=== PATIENT | female | born 1970 | race Caucasian/White ===

== ENCOUNTER 2018-07-25 11:00 | Outpatient (RCR) | payer MEDICARE, MEDICAID, SELFPAY ==
--- NOTE | 2018-06-27 11:34 | PTTR_ITS ---
DATE: 06/27/18 SUBJECTIVE: Socorro states that her back and shoulders have been very sore today. She had trouble sleeping last night due to pain. Her caregiver provides a message from Socorro's mother, who reported that Socorro had a great deal of difficulty getting out of bed this morning, requiring assistance from her mother and complaining of back pain. Her caregiver reports that she completed her 90 minute exercise program here today without any pain complaints or difficulty. Compliant with HEP: x Yes No OBJECTIVE: Manual therapy: ([id number]): Patient is able to transfer sit<->supine independently, without modification or c/o pain. She references the right buttock as the location of her pain; she received manual stretching to the right piriformis with good tolerance. She then received manual mobilization of the cervical spine and bilat shoulders. Began with PROM to bilat shoulders, where she initially experiences impingement symptoms at 165 degrees flexion bilat. Performed CFM to bilat GTs, as well as grade II inferior and AP GH joint mobs bilat. Patient received gentle manual cervical traction and suboccipital release, as well as DTM through the upper traps bilat. Post-rx, she has full PROM bilat shoulders without pain. She received gentle lower trunk rotation, and was instructed in home completion prior to getting out of bed in the am. Direct treatment time: 30 minutes Total treatment time: 30 minutes
--- NOTE | 2018-07-09 16:00 | PTTR_ITS ---
DATE: 07/09/18 SUBJECTIVE: Socorro states her neck and shoulders continue to be very painful. She has tried her stretches in the morning, her mother feels that these have been helpful. Manual therapy: ([id number]). Began with gentle manual cervical traction and suboccipital release. The patient received manual stretching to the scalene and upper traps bilaterally. This was followed by PROM to bilateral shoulders and cross friction to the greater tuberosity bilaterally. She received grade 2 inferior and AP GH joint mobilizations bilaterally with good tolerance as well as trigger point release to the upper traps bilaterally. Post mobilization, the patient reports good symptomatic relief. Direct treatment time: 30 mins Total treatment time: 30 mins SS/dl
--- NOTE | 2018-07-25 11:47 | PN_ITS ---
DATE: 07/25/18 REFERRING: Lorenza Hirsch NP REFERRING PROVIDER DIAGNOSIS:: chronic back pain and ataxia REPORTING PERIOD (for progress note and discharge note only): 12/20/17 - SUBJECTIVE: Socorro states that she continues to have pain every day. She reports that she cannot sleep at night due to her back and shoulders hurting. Her caregiver confirms that Socorro has been continuing to report bilateral shoulder, neck and mid back pain. She states that they have continued with Socorro's exercise program , working 2x/week here in the clinic on land-based strengthening, and 2x/week in the pool. OBJECTIVE: Posture: The patient is able to statically stand without UE support, although with maximally widened base of support. She utilizes articulating AFOs on bilateral LEs. She does typically use a rollator walker, which she does not have with her during our visit today. Gait: (indicate right or left deficits) Ataxic gait pattern without assistive device. She maintains a wide base of support, and has flat foot throughout all phases of gait. She demonstrates a shortened stride length today with internal rotation of the right hip and circumducting gait pattern, right greater than left. Palpation: Significant tenderness to palpation throughout the thoracic paraspinals, bilat upper traps. Treatment: Today's session consisted of mobilization of the spine and surrounding musculature. She received DTM throughout the thoracic paraspinals, and grade III PA mobs to the upper thoracic segments. She received DTM and TrP release to the upper traps bilat. ASSESSMENT: Socorro has been seen here in the clinic 2x/month for management of her chronic pain and mobility deficits related to her severe scoliosis. She continues to struggle with daily pain from bilat shoulder impingement, as well as mid back and neck pain related to her scoliosis. She performs an extensive exercise program with assistance from her caregivers, and requires continued mobilization to manage her pain and prevent further decline. G-Codes (add modifier after appropriate code): * [x] Mobility - walking and moving around : [id number]] based on clinic judgement Projected goal: [id number]] ST) return to baseline level of pain and function (met) 2) train new caregiver in completion of independent strengthening program (met) LT) maintain low pain levels and normalize mobility to allow patient to resume her normal volunteer activities and day to day exercises (progressing toward) KX modifier to be utilized as justified by above documentation for necessity of continued Physical Therapy intervention to attend to functional deficits which have not been fully remediated as they approach their Medicare cap. PLAN: Patient to continue treatment, 2 x per month, for 6 months, adjusting frequency of visits per patient symptoms and response to treatment. Treatment to include: * x Manual therapy - [id number]- (indicate any further detail here): Will continue with manual mobilization, including joint mobs to bilat shoulders, cervical spine and upper thoracic spine. Will also continue with DTM to address soft tissue dysfunction. * x Therapeutic exercise - [id number] continue to modify and progress patient's exercise program as she tolerates.
== END 2018-07-25 23:59 | disposition home or self-care (01) ==
LOC: PT 11:00
PROVIDERS: Referring Provider Nurse Practitioner Gerontology; Visit Provider Nurse Practitioner Gerontology
DX: M54.5 Low back pain (principal); R27.0 Ataxia, unspecified
CPT/HCPCS: 97140; G8978

== ENCOUNTER 2018-09-18 12:06 | Outpatient (CLI) | payer MEDICARE, MEDICAID, SELFPAY ==
--- NOTE | 2018-09-18 15:03 | DI.RAD_ITS ---
SYMPTOMS/DIAGNOSIS: CONSTIPATION, K59.00 ABDOMEN: Single view of the abdomen was obtained. There is marked biconvex thoracolumbar scoliosis. The bowel gas pattern is within normal limits. No gross free intraperitoneal air identified on this supine view. The requisition raises the possibility of constipation and there is no evidence of constipation. CONCLUSION: Negative examination of the abdomen.
== END 2018-09-18 12:26 ==
DX: K59.00 Constipation, unspecified (principal)
CPT/HCPCS: 74018

== ENCOUNTER → 2018-10-28 09:02 | Outpatient (BNVA) | payer MEDICARE, MEDICAID, SELFPAY | PROVIDERS: Visit Provider Orthopaedic Surgery | DX: M17.0 Bilateral primary osteoarthritis of knee (principal); M65.811 Other synovitis and tenosynovitis, right shoulder | CPT/HCPCS: 20610; 99211; 99213; J1040; J7325 ==

== ENCOUNTER 2019-01-14 15:30 | Outpatient (REF) | payer MEDICARE, MEDICAID, SELFPAY | END 2019-01-14 15:50 | LOC: LBN 15:30 | DX: R69 Illness, unspecified (principal) | CPT/HCPCS: 87329; 87505; 83630; 87177; 87230 ==

== ENCOUNTER 2019-01-16 16:39 | Outpatient (REF) | payer MEDICARE, MEDICAID, SELFPAY ==
[2019-01-19 13:15] LABS: Campylobacter PCR SEE COMMENTS; Salmonella PCR SEE COMMENTS; Shiga Toxin PCR SEE COMMENTS; Shigella/Enteroinvasive Ecoli SEE COMMENTS
[2019-01-29 03:23] LABS: Chymotrypsin, Stool 2.3 U/g (2.3-51.4)
== END 2019-01-16 16:59 ==
LOC: LBN 16:39
DX: K52.9 Noninfective gastroenteritis and colitis, unspecified (principal)
CPT/HCPCS: 84311; 87329; 87505; 82272

== ENCOUNTER 2019-01-30 09:52 | Outpatient (REF) | payer MEDICARE, MEDICAID, SELFPAY | END 2019-01-30 10:12 | LOC: LBN 09:52 | DX: R19.7 Diarrhea, unspecified (principal) | CPT/HCPCS: 87324 ==

== ENCOUNTER 2019-02-23 13:24 | Outpatient (CLI) | payer MEDICARE, MEDICAID, SELFPAY ==
[2019-02-23 15:26] LABS: Anion Gap 13.1 mmol/L (3-11); BUN 14 mg/dL (7-18); CO2 24.9 mmol/L (21.0-32.0); CREATININE 0.76 mg/dL (0.55-1.02); Calcium 9.1 mg/dL (8.5-10.1); Chloride 103 mmol/L (98-107); Glucose 81 mg/dL (70-100); Potassium 3.7 mmol/L (3.5-5.1); Sodium 141 mmol/L (136-145); TSH (W/Ref FT4) 1.87 uIU/mL (0.358-3.74)
== END 2019-02-23 13:44 ==
PROVIDERS: Visit Provider Internal Medicine
DX: E03.9 Hypothyroidism, unspecified (principal); F32.9 Major depressive disorder, single episode, unspecified; F79 Unspecified intellectual disabilities; Z00.00 Encounter for general adult medical examination without abnormal findings; G47.00 Insomnia, unspecified
CPT/HCPCS: 36415; 80048; 84443

== ENCOUNTER 2019-03-03 00:50 | Outpatient (CLI) | payer MEDICARE, MEDICAID, SELFPAY ==
--- NOTE | 2019-03-03 13:10 | DI.RAD_ITS ---
SYMPTOMS/DIAGNOSIS: HEIGHT LOSS, SCREENING FOR OSTEOPOROSIS IN POSTMENOPAUSAL WOMAN, Z78.0 DEXA SCAN: Routine examination was performed. The MARJORIE was not performed on this exam due to the patient's severe scoliotic curvature of the spine. Evaluation of the left hip shows a total T score of -1.4 and a Z score of -1.0. This is consistent with osteopenia and an increased fracture risk. AP view of the lumbar spine shows a severe right convex scoliosis of the thoracolumbar spine. A portion of the L1 vertebral body does not appear to be included on the examination. IMPRESSION: Osteopenia in the left hip.
== END 2019-03-03 01:10 ==
PROVIDERS: Visit Provider Internal Medicine
DX: M85.88 Other specified disorders of bone density and structure, other site (principal); Z78.0 Asymptomatic menopausal state; R29.890 Loss of height
CPT/HCPCS: 77080

== ENCOUNTER → 2019-04-28 09:32 | Outpatient (BNVA) | payer MEDICARE, MEDICAID, SELFPAY | PROVIDERS: Visit Provider Orthopaedic Surgery | DX: M75.82 Other shoulder lesions, left shoulder (principal); M17.11 Unilateral primary osteoarthritis, right knee; M25.512 Pain in left shoulder; M25.561 Pain in right knee | CPT/HCPCS: 20610; 99211; J1040; J7325 ==

== ENCOUNTER 2019-05-15 11:51 | Emergency (ER) | payer MEDICARE, MEDICAID, SELFPAY ==
[2019-05-15] VITALS (29 sets, daily range): BP systolic 130–175; BP diastolic 90–108; PULSE 72–121; RESP 13–24; TEMP 36.8; O2SAT 94–99
--- NOTE | 2019-05-15 12:09 | DI.RAD_ITS ---
SYMPTOM/DIAGNOSIS: CHEST PAIN PA AND LATERAL CHEST: There is a severe biconvex scoliosis, greatest at the thoracolumbar junction. The heart size is normal. The lungs are clear. IMPRESSION: Severe scoliosis. No acute abnormality.
--- NOTE | 2019-05-15 12:10 | W.ED.GENAD ---
Discharge Plan Disposition Patient Disposition: HOME Condition: Stable Discharge Details Chief Complaint: Chest Pain Clinical Impression: Upper back pain Primary Care Provider: Christina Trevizo ED Provider: Hardy Martinez Home Meds and New Rx's Prescriptions: No Action calcium carbonate-vitamin D3 500mg (1,250mg) -600 unit tablet 1 tab PO DAILY Qty: 90 RF: 4 omeprazole 20 mg capsule,delayed release(DR/EC) 20 mg PO DAILY RF: 0 azithromycin 250 mg tablet See Rx Instructions PO .COMPLEX Qty: 6 RF: 0 sertraline 100 mg tablet 100 mg PO DAILY Qty: 90 RF: 4 levothyroxine 50 mcg tablet 50 mcg PO DAILY Qty: 90 RF: 4 omega-3 fatty acids 1,000 MG capsule 1 cap PO DAILY RF: 0 multivitamin 1 EACH capsule 1 cap PO DAILY RF: 0 [id number] C-Mn [Glucosamine 1500 Complex] 1 EACH capsule 1 cap PO DAILY RF: 0 Systane Liquid Gel 15 ML drops, liquid gel 1 drp Ophthalmic QID RF: 0 acetaminophen [Tylenol Extra Strength] 500 MG tablet 1,000 mg PO TID PRN RF: 0 cyclobenzaprine 5 MG tablet 5 mg PO Q8H PRN Qty: 20 RF: 0 loratadine 10 mg tablet 10 mg PO daily prn Qty: 90 RF: 3 duloxetine 60 mg capsule,delayed release(DR/EC) 60 mg PO DAILY Qty: 90 RF: 2 famotidine 20 mg tablet 20 mg PO BID Qty: 180 RF: 4 meloxicam 7.5 mg tablet 7.5 mg PO BID PRN (Reason: joint pain) Qty: 180 RF: 3 norethindrone acetate 5 mg tablet 5 mg PO DAILY Qty: 90 RF: 4 tramadol 50 mg tablet 50 mg PO HS PRN (Reason: pain) Qty: 18 RF: 0 Discharge Instructions Instructions: Back Pain (ED) Additional Instructions: If symptoms continue see your primary care provider within a week if you develop severe worsening pain, difficulty breathing or fevers return to the emergency department for reevaluation Medical Decision Making 49 yo female comes in with chief complaint of upper back pain. She has a hx of scoliosis and was at PT doing back exercises when she started to have upper back pain. She apparently said she had chest pain and so was sent here. She currently is stating her pain is in the right IV site where she had 3 needle sticks done and has mild upper back pain. She has reproducible upper back pain on exam. Her heart score is 2, will send troponin. Normal vascular exam so doubt dissection. Wells low and perc negative so doubt PE at this time pt remains stable, laughing in no distress. Xray and initial labs unremarkable, will obtain delta troponin and ecg and if negative feel she will be stable for d/c and outpatient f/u with pcp pt remains stable, second troponin unremarkable and she is laughing in n odistress. Will have her f/u with pcp and return precautions given Differential Diagnosis nstemi, back spasm, strain, Medical Records Medical records reviewed: Yes I reviewed the patient's medical records. Imaging Data Radiologic Study: Attestation: I personally reviewed and interpreted this imaging study as follows: Imaging: X-Ray My impression: no acute findings Lab Data Lab results reviewed: Yes I reviewed the patient's lab results. ECG Data Attestation: I personally reviewed and interpreted this ECG (s) as follows: Prior ECG tracings: not available for review Interpretation: sinus rhythm, rate of 89, pr 126, qtc 418 2nd ekg shows sinus rhythm, rate of 96, no acute changes compared to first ekg HPI General Mode of arrival: ambulatory. Date/Time Provider Initiated Documentation: 05/15/19 11:52. Limitations to Documentation: no limitations. Information obtained by: patient and family. History of Present Illness 49 year old F presents to the emergency department with the chief complaint of upper back pain, described as moderate, Quality is described as aching, Patient started experiencing this hour(s) (1) and it has been constant. No relieving factors improve symptom(s), Other factors that worsen symptoms (palpation) . Patient notes no other symptoms.. Patient did receive the following treatments prior to arrival, none Related Data Home Medications Medication Instructions Recorded Confirmed [id number] C-Mn 1 cap PO DAILY 02/13/13 05/15/19 [Glucosamine 1,500 Complex Cp] multivitamin 1 cap PO DAILY 02/13/13 05/15/19 omega-3 fatty acids 1 cap PO DAILY 02/13/13 05/15/19 peg 400-propylene glycol [Systane 1 drp OPHTHALMIC QID 02/13/13 05/15/19 Liquid Gel Eye Drops] acetaminophen [Tylenol Extra 1,000 mg PO TID PRN tab-cap 05/06/14 05/15/19 Strength] cyclobenzaprine 5 mg PO Q8H PRN #20 tab-cap 12/24/17 05/15/19 loratadine 10 mg tablet 10 mg PO daily prn #90 tab-cap 10/01/18 05/15/19 duloxetine 60 mg capsule,delayed 60 mg PO DAILY #90 cap 12/02/18 05/15/19 release levothyroxine 50 mcg tablet 50 mcg PO DAILY #90 tab-cap 12/23/18 05/15/19 sertraline 100 mg tablet 100 mg PO DAILY #90 tab-cap 12/23/18 05/15/19 azithromycin 250 mg tablet See Rx Instructions PO .COMPLEX #6 02/18/19 05/15/19 tab omeprazole 20 mg capsule,delayed 20 mg PO DAILY tab-cap 02/18/19 05/15/19 release calcium carbonate-vitamin D3 500 1 tab PO DAILY #90 tab 02/26/19 05/15/19 mg (1,250 mg)-600 unit tablet famotidine 20 mg tablet 20 mg PO BID #180 tab-cap 03/05/19 05/15/19 meloxicam 7.5 mg tablet 7.5 mg PO BID PRN #180 tab-cap 03/05/19 05/15/19 norethindrone acetate 5 mg tablet 5 mg PO DAILY #90 tab 03/05/19 05/15/19 tramadol 50 mg tablet 50 mg PO HS PRN #18 tab 03/17/19 05/15/19 Previous Rx's Medication Instructions Recorded cyclobenzaprine 5 mg PO Q8H PRN #20 tab-cap 12/24/17 loratadine 10 mg tablet 10 mg PO daily prn #90 tab-cap 10/01/18 duloxetine 60 mg capsule,delayed 60 mg PO DAILY #90 cap 12/02/18 release levothyroxine 50 mcg tablet 50 mcg PO DAILY #90 tab-cap 12/23/18 sertraline 100 mg tablet 100 mg PO DAILY #90 tab-cap 12/23/18 azithromycin 250 mg tablet See Rx Instructions PO .COMPLEX #6 02/18/19 tab calcium carbonate-vitamin D3 500 1 tab PO DAILY #90 tab 02/26/19 mg (1,250 mg)-600 unit tablet famotidine 20 mg tablet 20 mg PO BID #180 tab-cap 03/05/19 meloxicam 7.5 mg tablet 7.5 mg PO BID PRN #180 tab-cap 03/05/19 norethindrone acetate 5 mg tablet 5 mg PO DAILY #90 tab 03/05/19 tramadol 50 mg tablet 50 mg PO HS PRN #18 tab 03/17/19 Allergies Allergy/AdvReac Type Severity Reaction Status Date / Time No Known Allergies Allergy Verified 05/15/19 12:04 General Stated Complaint: Chest Pain JANNET: 2 Review of Systems Review of Systems All systems reviewed & are unremarkable except as noted in HPI and below Constitutional Denies chills, Denies fever(s) and Denies weakness Cardiovascular Denies dyspnea Respiratory Denies cough and Denies dyspnea Gastrointestinal Denies abdominal pain, Denies nausea and Denies vomiting Musculoskeletal Denies joint swelling Integumentary/Breasts Denies rash Neurologic Denies weakness Endocrine Denies cold intolerance PFSH Social History Smoking/Tobacco Use Status: Never Second Hand Exposure: Yes Alcohol Intake: never Drug use: Never Substance use type: does not use Caregiver/Support person: Yes Household members: other Details: Mother Housing: apartment Communication Needs: Corrective Lenses and Cannot Read Pets and animals: No Sexually active: No Current gender identity: decline to answer What is your relationship status?: never How often do you talk on the phone with friends or family?: three or more times per week How often do you get together with friends or relatives?: three or more times per week How often do you attend zoroastrian or sabianist services?: 4 or more times per year Do you belong to any clubs or organized social groups?: yes Panel score (0-1 are the most socially isolated patients): 3 What type of physical activity do you participate in: other Details: PT/Pool and treadmill @ [employer] Duration: 45-60 minutes/day Frequency: 3-4 times per week Lizzy/Evangelical: Caodaism Special lizzy needs: No Exam Const General: no acute distress Orientation: alert HENMT Head: normal to inspection Ears: external ears normal General nose exam: external nose normal Mouth: moist mucous membranes Eyes General: appearance normal, both eyes and all related structures Neck Neck: normal visual inspection Resp Effort & Inspection: normal respiratory effort and able to speak in complete sentences Cardio Rate: regular rate Back/Spine/Pelvis Back: no CVA tenderness Skin General skin exam: no rashes or lesions noted Neuro General: alert Extrem General: normal to inspection Psych Mental Status: mental status grossly normal Course Vital Signs Temperature 36.8 C 05/15/19 11:58 Pulse 86 05/15/19 11:58 Respiratory Rate 05/15/19 11:58 Blood Pressure 175/106 H 05/15/19 11:58 Pulse Oximetry 98 05/15/19 11:58 Temperature 36.8 C 05/15/19 11:58 Temperature Source Temporal Artery Scan 05/15/19 11:58 Pulse 86 05/15/19 11:58 Respiratory Rate 05/15/19 11:58 Respiratory Effort Non-Labored 05/15/19 12:02 Blood Pressure 175/106 H 05/15/19 11:58 Blood Pressure Position Supine 05/15/19 11:58 Pulse Oximetry 98 05/15/19 11:58 Oxygen Delivery Method Room Air 05/15/19 11:58 Oxygen Flow Rate 0 05/15/19 11:58 Pain Level 10 05/15/19 11:58
--- NOTE | 2019-05-15 12:14 | ED.GENADUL_ITS ---
Discharge Plan Disposition Patient Disposition: HOME Condition: Stable Discharge Details Chief Complaint: Chest Pain Clinical Impression: Upper back pain Primary Care Provider: Christina Trevizo ED Provider: Hardy Martinez Home Meds and New Rx's Prescriptions: No Action calcium carbonate-vitamin D3 500mg (1,250mg) -600 unit tablet 1 tab PO DAILY Qty: 90 RF: 4 omeprazole 20 mg capsule,delayed release(DR/EC) 20 mg PO DAILY RF: 0 azithromycin 250 mg tablet See Rx Instructions PO .COMPLEX Qty: 6 RF: 0 sertraline 100 mg tablet 100 mg PO DAILY Qty: 90 RF: 4 levothyroxine 50 mcg tablet 50 mcg PO DAILY Qty: 90 RF: 4 omega-3 fatty acids 1,000 MG capsule 1 cap PO DAILY RF: 0 multivitamin 1 EACH capsule 1 cap PO DAILY RF: 0 [id number] C-Mn [Glucosamine 1500 Complex] 1 EACH capsule 1 cap PO DAILY RF: 0 Systane Liquid Gel 15 ML drops, liquid gel 1 drp Ophthalmic QID RF: 0 acetaminophen [Tylenol Extra Strength] 500 MG tablet 1,000 mg PO TID PRN RF: 0 cyclobenzaprine 5 MG tablet 5 mg PO Q8H PRN Qty: 20 RF: 0 loratadine 10 mg tablet 10 mg PO daily prn Qty: 90 RF: 3 duloxetine 60 mg capsule,delayed release(DR/EC) 60 mg PO DAILY Qty: 90 RF: 2 famotidine 20 mg tablet 20 mg PO BID Qty: 180 RF: 4 meloxicam 7.5 mg tablet 7.5 mg PO BID PRN (Reason: joint pain) Qty: 180 RF: 3 norethindrone acetate 5 mg tablet 5 mg PO DAILY Qty: 90 RF: 4 tramadol 50 mg tablet 50 mg PO HS PRN (Reason: pain) Qty: 18 RF: 0 Discharge Instructions Instructions: Back Pain (ED) Additional Instructions: If symptoms continue see your primary care provider within a week if you develop severe worsening pain, difficulty breathing or fevers return to the emergency department for reevaluation Medical Decision Making 49 yo female comes in with chief complaint of upper back pain. She has a hx of scoliosis and was at PT doing back exercises when she started to have upper back pain. She apparently said she had chest pain and so was sent here. She currently is stating her pain is in the right IV site where she had 3 needle sticks done and has mild upper back pain. She has reproducible upper back pain on exam. Her heart score is 2, will send troponin. Normal vascular exam so doubt dissection. Wells low and perc negative so doubt PE at this time pt remains stable, laughing in no distress. Xray and initial labs unremarkable, will obtain delta troponin and ecg and if negative feel she will be stable for d/c and outpatient f/u with pcp pt remains stable, second troponin unremarkable and she is laughing in n odistress. Will have her f/u with pcp and return precautions given Differential Diagnosis nstemi, back spasm, strain, Medical Records Medical records reviewed: Yes I reviewed the patient's medical records. Imaging Data Radiologic Study: Attestation: I personally reviewed and interpreted this imaging study as follows: Imaging: X-Ray My impression: no acute findings Lab Data Lab results reviewed: Yes I reviewed the patient's lab results. ECG Data Attestation: I personally reviewed and interpreted this ECG (s) as follows: Prior ECG tracings: not available for review Interpretation: sinus rhythm, rate of 89, pr 126, qtc 418 2nd ekg shows sinus rhythm, rate of 96, no acute changes compared to first ekg HPI General Mode of arrival: ambulatory . Date/Time Provider Initiated Documentation: 05/15/19 11:52 . Limitations to Documentation: no limitations . Information obtained by: patient and family . History of Present Illness 49 year old F presents to the emergency department with the chief complaint of upper back pain, described as moderate, Quality is described as aching, Patient started experiencing this hour(s) (1) and it has been constant. No relieving factors improve symptom(s), Other factors that worsen symptoms (palpation) . Patient notes no other symptoms.. Patient did receive the following treatments prior to arrival, none Related Data Home Medications Medication Instructions Recorded Confirmed coxoywmaqab-zffjqapjq-gii C-Mn 1 cap PO DAILY 02/13/13 05/15/19 [Glucosamine 1,500 Complex Cp] multivitamin 1 cap PO DAILY 02/13/13 05/15/19 omega-3 fatty acids 1 cap PO DAILY 02/13/13 05/15/19 peg 400-propylene glycol [Systane 1 drp OPHTHALMIC QID 02/13/13 05/15/19 Liquid Gel Eye Drops] acetaminophen [Tylenol Extra 1,000 mg PO TID PRN tab-cap 05/06/14 05/15/19 Strength] cyclobenzaprine 5 mg PO Q8H PRN #20 tab-cap 12/24/17 05/15/19 loratadine 10 mg tablet 10 mg PO daily prn #90 tab-cap 10/01/18 05/15/19 duloxetine 60 mg capsule,delayed 60 mg PO DAILY #90 cap 12/02/18 05/15/19 release levothyroxine 50 mcg tablet 50 mcg PO DAILY #90 tab-cap 12/23/18 05/15/19 sertraline 100 mg tablet 100 mg PO DAILY #90 tab-cap 12/23/18 05/15/19 azithromycin 250 mg tablet See Rx Instructions PO .COMPLEX #6 02/18/19 05/15/19 tab omeprazole 20 mg capsule,delayed 20 mg PO DAILY tab-cap 02/18/19 05/15/19 release calcium carbonate-vitamin D3 500 1 tab PO DAILY #90 tab 02/26/19 05/15/19 mg (1,250 mg)-600 unit tablet famotidine 20 mg tablet 20 mg PO BID #180 tab-cap 03/05/19 05/15/19 meloxicam 7.5 mg tablet 7.5 mg PO BID PRN #180 tab-cap 03/05/19 05/15/19 norethindrone acetate 5 mg tablet 5 mg PO DAILY #90 tab 03/05/19 05/15/19 tramadol 50 mg tablet 50 mg PO HS PRN #18 tab 03/17/19 05/15/19 Previous Rx's Medication Instructions Recorded cyclobenzaprine 5 mg PO Q8H PRN #20 tab-cap 12/24/17 loratadine 10 mg tablet 10 mg PO daily prn #90 tab-cap 10/01/18 duloxetine 60 mg capsule,delayed 60 mg PO DAILY #90 cap 12/02/18 release levothyroxine 50 mcg tablet 50 mcg PO DAILY #90 tab-cap 12/23/18 sertraline 100 mg tablet 100 mg PO DAILY #90 tab-cap 12/23/18 azithromycin 250 mg tablet See Rx Instructions PO .COMPLEX #6 02/18/19 tab calcium carbonate-vitamin D3 500 1 tab PO DAILY #90 tab 02/26/19 mg (1,250 mg)-600 unit tablet famotidine 20 mg tablet 20 mg PO BID #180 tab-cap 03/05/19 meloxicam 7.5 mg tablet 7.5 mg PO BID PRN #180 tab-cap 03/05/19 norethindrone acetate 5 mg tablet 5 mg PO DAILY #90 tab 03/05/19 tramadol 50 mg tablet 50 mg PO HS PRN #18 tab 03/17/19 Allergies Allergy/AdvReac Type Severity Reaction Status Date / Time No Known Allergies Allergy Verified 05/15/19 12:04 General Stated Complaint: Chest Pain JANNET: 2 Review of Systems Review of Systems All systems reviewed & are unremarkable except as noted in HPI and below Constitutional Denies chills, Denies fever(s) and Denies weakness Cardiovascular Denies dyspnea Respiratory Denies cough and Denies dyspnea Gastrointestinal Denies abdominal pain, Denies nausea and Denies vomiting Musculoskeletal Denies joint swelling Integumentary/Breasts Denies rash Neurologic Denies weakness Endocrine Denies cold intolerance PFSH Social History Smoking/Tobacco Use Status: Never Second Hand Exposure: Yes Alcohol Intake: never Drug use: Never Substance use type: does not use Caregiver/Support person: Yes Household members: other Details: Mother Housing: apartment Communication Needs: Corrective Lenses and Cannot Read Pets and animals: No Sexually active: No Current gender identity: decline to answer What is your relationship status?: never How often do you talk on the phone with friends or family?: three or more times per week How often do you get together with friends or relatives?: three or more times per week How often do you attend yazdanism or congregational services?: 4 or more times per year Do you belong to any clubs or organized social groups?: yes Panel score (0-1 are the most socially isolated patients): 3 What type of physical activity do you participate in: other Details: PT/Pool and treadmill @ [employer] Duration: 45-60 minutes/day Frequency: 3-4 times per week Lizzy/Denominational: [employer] Special lizzy needs: No Exam Const General: no acute distress Orientation: alert HENMT Head: normal to inspection Ears: external ears normal General nose exam: external nose normal Mouth: moist mucous membranes Eyes General: appearance normal, both eyes and all related structures Neck Neck: normal visual inspection Resp Effort & Inspection: normal respiratory effort and able to speak in complete sentences Cardio Rate: regular rate Back/Spine/Pelvis Back: no CVA tenderness Skin General skin exam: no rashes or lesions noted Neuro General: alert Extrem General: normal to inspection Psych Mental Status: mental status grossly normal Course Vital Signs Temperature 36.8 C 05/15/19 11:58 Pulse 86 05/15/19 11:58 Respiratory Rate 05/15/19 11:58 Blood Pressure 175/106 H 05/15/19 11:58 Pulse Oximetry 98 05/15/19 11:58 Temperature 36.8 C 05/15/19 11:58 Temperature Source Temporal Artery Scan 05/15/19 11:58 Pulse 86 05/15/19 11:58 Respiratory Rate 05/15/19 11:58 Respiratory Effort Non-Labored 05/15/19 12:02 Blood Pressure 175/106 H 05/15/19 11:58 Blood Pressure Position Supine 05/15/19 11:58 Pulse Oximetry 98 05/15/19 11:58 Oxygen Delivery Method Room Air 05/15/19 11:58 Oxygen Flow Rate 0 05/15/19 11:58 Pain Level 10 05/15/19 11:58
[2019-05-15 12:29] LABS: Abs Immature Grans 0.01 k/cumm (0.0-0.09); Absolute Basophil Count 0.04 k/cumm (0.0-0.2); Absolute Eosinophil Count 0.09 k/cumm (0.0-0.7); Absolute Lymphocyte Count 1.77 k/cumm (1.2-3.4); Absolute Monocyte Count 0.55 k/cumm (0.11-0.7); Absolute Neutrophil Count 2.19 k/cumm (1.2-6.7); Basophils % 0.9; Eosinophils % 1.9; HCT 41.8 % (36.0-46.0); HGB 13.9 g/dL (12.0-15.5); Immature Grans % 0.2; Lymphocytes % 38.1; Mean Corp. HGB Concentration 33.3 g/dL (32.0-36.0); Mean Corpuscular Volume 102.2 fL (80-95); Mean Platelet Volume 10.1 fL (8.0-11.0); Monocytes % 11.8; Neutrophils % 47.1; Platelet Count 236 x1000/uL (130-400); RBC 4.09 m/cumm (4.00-5.20); RBC Distribution Width 12.4 % (11.7-14.6); White Blood Cell Count 4.65 k/cumm (4.4-10.8)
[2019-05-15 12:42] LABS: ALT 46 U/L (12-78); AST 23 U/L (15-37); Albumin 4.3 g/dL (3.4-5.0); Alkaline Phosphatase 49 U/L (46-116); Anion Gap 12.2 mmol/L (3-11); BUN 17 mg/dL (7-18); Bilirubin, Total 0.5 mg/dL (0.2-1.0); CO2 25.8 mmol/L (21.0-32.0); CREATININE 0.85 mg/dL (0.55-1.02); Calcium 9.5 mg/dL (8.5-10.1); Chloride 105 mmol/L (98-107); Glucose 90 mg/dL (70-100); Magnesium 2.4 mg/dL (1.8-2.4); Potassium 4.4 mmol/L (3.5-5.1); Sodium 143 mmol/L (136-145); Total Protein 7.3 g/dL (6.4-8.2)
[2019-05-15 12:48] LABS: Troponin I < 0.05 ng/mL (0.00-0.06)
--- NOTE | 2019-05-15 12:57 | NUR.NOTE ---
Nursing Note: pt brought to x-ray in wheelchair, accompanied by Mother.
[2019-05-15] MEDS: Aspirin 81 MG CHEW 324 MG CH (13:15)
[2019-05-15 15:35] LABS: Troponin I < 0.05 ng/mL (0.00-0.06)
== END 2019-05-15 16:03 | disposition home or self-care (01) ==
PROVIDERS: Emergency Provider Emergency Medicine
DX: M54.6 Pain in thoracic spine (principal)
CPT/HCPCS: 36415; 80053; 93005; 99284; 71046; 83735; 84484; 85025; 93010

== ENCOUNTER 2019-11-03 14:20 | Outpatient (CLI) | payer MEDICARE, MEDICAID, SELFPAY ==
--- NOTE | 2019-11-03 14:07 | DI.RAD_ITS ---
EXAM: XR SHOULDER LT COMPLETE 2+V INDICATION: PAIN. COMPARISON: No exams were available for comparison TECHNIQUE: 2D digital imaging was performed. FINDINGS: There is spurring at the undersurface of the acromion. The glenohumeral joint space is well maintain ed. There is minimal spurring at the glenoid. No tendon or joint space calcifications are seen. Th e humeral head appears normally positioned. IMPRESSION: Mild degenerative changes.
== END 2019-11-03 14:40 ==
PROVIDERS: Visit Provider Student in an Organized Health Care Education/Training Program
DX: M25.512 Pain in left shoulder (principal); M19.012 Primary osteoarthritis, left shoulder; G89.29 Other chronic pain
CPT/HCPCS: 99203; 99214; 73030

== ENCOUNTER 2019-11-17 11:41 | Outpatient (CLI) | payer MEDICARE, MEDICAID, SELFPAY ==
[2019-11-17 13:15] LABS: CREATININE 0.79 mg/dL (0.55-1.02); Potassium 4.4 mmol/L (3.5-5.1)
== END 2019-11-17 12:01 ==
PROVIDERS: Visit Provider Nurse Practitioner
DX: I10 Essential (primary) hypertension (principal)
CPT/HCPCS: 36415; 82565; 84132

== ENCOUNTER 2020-04-21 03:24 | Outpatient (CLI) | payer MEDICARE, MEDICAID, SELFPAY ==
[2020-04-21 17:08] LABS: Estradiol <12 pg/mL (See Note)
[2020-04-22 12:28] LABS: FSH 15.5 mIU/mL (See Note)
== END 2020-04-21 03:44 ==
PROVIDERS: PCP Nurse Practitioner; Visit Provider Obstetrics & Gynecology Gynecology
DX: N95.1 Menopausal and female climacteric states (principal)
CPT/HCPCS: 36415; 82670; 83001

== ENCOUNTER 2020-06-09 01:17 | Outpatient (CLI) | payer MEDICARE, MEDICAID, SELFPAY ==
--- NOTE | 2020-06-09 | DI.US_ITS ---
EXAM: MG MAMMO SCREENING 60 MIN DUR CLINICAL HISTORY: screening,Z12.39 TECHNIQUE: Mammograms were interpreted according to the usual protocol including computer analysis w [employer] CAD system, tomosynthesis and C-view imaging. COMPARISON: FINDINGS: Mammogram with additional mammographic views of both breasts is interpreted in conjunction with right and left breast ultrasound. Today's examination is the patient's 1st mammographic examination. The breasts are of moderate densi ty with irregular distribution of fibroglandular tissue. There is poorly defined nodular density measuring 5-6 millimeters in diameter in the lower outer quad rant of the left breast. This contains a few predominantly punctate microcalcifications. Spot compr ession views show poor delineation of the margins of this nodular radiodensity. Breast ultrasound do es not show a discrete mass in this area. Biopsy is recommended for this masslike irregular radioden sity. On the right, there is a mostly well-circumscribed 6 millimeter in diameter mass of the medial aspect of the breast, in the 2-4 o'clock position. There is also poorly defined irregular radiodensity see n inferior and lateral to this nodular radiodensity and which lies more inferior in the breast. Spot compression views show persistent radiodensities at these sites with multiple punctate to jennifer-shaped microcalcifications. Breast ultrasound shows a 3 millimeter in diameter hypoechoic mass in the 2 o' clock position in the breast measuring about 4 millimeters in diameter, this appears to contains some tiny calcifications and may correspond to 1 of the mammographically identified nodules. Ultrasound a graphically, the border is not ideally defined. Biopsy should be considered. IMPRESSION: Bilateral indeterminate breast nodules as described above, no prior mammograms available for comparis on, because of the poorly defined borders of these lesions and the presence of microcalcifications, b iopsy is recommended. Biopsy may be obtained utilizing stereotactic localization. BI-RADS Cat 4 - Suspicious Abnormality: Biopsy should be considered Breast Density - Category B - Scattered areas of fibroglandular density
== END 2020-06-09 01:37 ==
PROVIDERS: PCP Nurse Practitioner; Visit Provider Nurse Practitioner
DX: Z12.31 Encounter for screening mammogram for malignant neoplasm of breast (principal); R92.8 Other abnormal and inconclusive findings on diagnostic imaging of breast; N63.23 Unspecified lump in the left breast, lower outer quadrant; N63.12 Unspecified lump in the right breast, upper inner quadrant
CPT/HCPCS: 76642; 77063; 77067

== ENCOUNTER 2021-06-12 01:53 | Outpatient (CLI) | payer MEDICARE, MEDICAID, SELFPAY ==
--- NOTE | 2021-06-12 07:10 | DI.MAMMO_ITS ---
Exam(s) MG MAMMO SCREENING 60 MIN DUR EXAM: MG MAMMO SCREENING 60 MIN DUR CLINICAL HISTORY: breast cancer screening,Z12.39. TECHNIQUE: Bilateral full field digital CC and MLO mammographic images were obtained with 3D tomosyn thesis and utilizing computer aided detection (CAD). COMPARISON: Prior 1st mammogram performed May 2020. Ultrasounds of May 2020 were also reviewed. Apparently this patient did not undergo the request biopsies para FINDINGS: The previously seen described bilateral nodules appear relatively stable when compared to the baselin e mammogram of 1 year ago. Indeed, 1 of the nodules in the right breast has slightly decreased in size. There are no new nodules evident. Microcalcifications in 1 of the right breast nodules are again not ed, unchanged. There is no significant architectural distortion nor skin thickening-retraction. IMPRESSION: Stable bilateral breast nodules unchanged the baseline mammogram of 1 year ago (June 09, 2000 BI-RADS Category 2 - Benign Findings Breast Density - Category B - Scattered areas of fibroglandular density Breast density Category C or D implies that the patient has dense breast tissue. Dense breast tissue can make it harder to find cancer on a mammogram. Dense breast tissue is also associated with an incr eased risk of breast cancer. This information about the result of the mammogram report was provided to the patient to raise their awareness. Use this report when you speak with the patient about their risks for breast cancer, which includes their family history. At that time, you may recommend additional screening tests (Ultrasoun d or MRI) as these tests may add significant information. A negative radiographic report should not delay biopsy if a dominant or clinically suspicious mass is present. Up to ten percent of cancers are not identified on mammography. A negative report may reinforce clinical impression. Adenosis and dense breasts may obscure an underlying neoplasm. False positive reports average 6 to 10%. Patient will receive a letter notifying them of these results.
== END 2021-06-12 02:13 ==
PROVIDERS: PCP Nurse Practitioner; Visit Provider Nurse Practitioner
DX: Z12.31 Encounter for screening mammogram for malignant neoplasm of breast (principal); R92.8 Other abnormal and inconclusive findings on diagnostic imaging of breast; N63.20 Unspecified lump in the left breast, unspecified quadrant; N63.21 Unspecified lump in the left breast, upper outer quadrant
CPT/HCPCS: 77063; 77067

== ENCOUNTER 2021-10-24 03:06 | Outpatient (CLI) | payer MEDICARE, MEDICAID, SELFPAY ==
[2021-10-24 13:16] LABS: Hemoglobin A1C 5.5 % (<5.7)
[2021-10-24 14:11] LABS: TSH 5.65 uIU/mL (0.36-3.74)
== END 2021-10-24 03:07 | disposition home or self-care (01) ==
LOC: LBO 03:07
PROVIDERS: PCP Nurse Practitioner; Visit Provider Nurse Practitioner
DX: I10 Essential (primary) hypertension (principal); E03.9 Hypothyroidism, unspecified; R73.09 Other abnormal glucose
CPT/HCPCS: 36415; 83036; 84443

== ENCOUNTER 2021-12-15 11:32 | Outpatient (CLI) | payer MEDICARE, MEDICAID, SELFPAY ==
[2021-12-15 15:27] LABS: CREATININE 1.1 mg/dL (0.55-1.02); Estimated GFR 52.79 (mL/min/1.73m2); Potassium 4.1 mmol/L (3.5-5.1)
[2021-12-15 15:42] LABS: TSH 3.03 uIU/mL (0.36-3.74)
== END 2021-12-15 11:33 | disposition home or self-care (01) ==
LOC: LBO 11:35
PROVIDERS: PCP Nurse Practitioner; Visit Provider Nurse Practitioner
DX: E03.9 Hypothyroidism, unspecified (principal); I10 Essential (primary) hypertension
CPT/HCPCS: 36415; 82565; 84132; 84443

== ENCOUNTER → 2022-06-25 01:45 | Outpatient (CLI) | payer MEDICARE, MEDICAID, SELFPAY ==
--- NOTE | 2022-06-25 | DI.US_ITS ---
Exam(s) US BREAST RT LIMITED US BREAST LT LIMITED MG MAMMO SCREENING 60 MIN DUR EXAM: US BREAST RT LIMITED CLINICAL HISTORY: BILATERAL NODULES SEEN ON MAMMO TECHNIQUE: Ultrasound performed using standard protocol. COMPARISON: US US BREAST LT LIMITED from 06/09/2020 FINDINGS: Bilateral mammogram was obtained and is compared with prior mammograms including May 2021 and May 26. There are multiple small nodules seen in each breast. No suspicious new microcalcification see n. Breast parenchyma is of moderate radiodensity. There is a 6 millimeter in diameter nodule of the right breast, additional mammographic views of this were obtained to evaluate possible increase in s ize in comparison with examination of 2020. Additionally breast ultrasound was performed on the [facility]. Spot compression views show a suboptimally visualized nodule, probably unchanged from prior exami [place] of 2019 but slightly larger than 2019. Breast ultrasound shows a bilobed 5 millimeter cyst co rresponding in location to this nodule in the 3 o'clock position in the breast 5 cm from nipple. No other significant change on the right. On the left there are multiple small nodules seen, an inferiorly located left breast nodule was noted and additional spot compression views were obtained. This appears unchanged from prior examination of 2019, this lies in the lower outer quadrant of the left breast. Breast ultrasound was also perfor med and shows no evidence of a mass or cyst. IMPRESSION: Bilateral breast nodules are noted which are most consistent with benign disease. follow-up bilater al breast ultrasound and bilateral mammogram requested in 6 months. BI-RADS Cat 3 - 6 month - Probably Benign Finding: Recommend follow-up imaging in 6 months Breast Density - Category B - Scattered areas of fibroglandular density DATA REPOSITORY:
== END ==
PROVIDERS: PCP Nurse Practitioner; Visit Provider Nurse Practitioner
DX: Z12.31 Encounter for screening mammogram for malignant neoplasm of breast (principal); R92.8 Other abnormal and inconclusive findings on diagnostic imaging of breast; N63.20 Unspecified lump in the left breast, unspecified quadrant; N63.10 Unspecified lump in the right breast, unspecified quadrant
CPT/HCPCS: 76642; 77063; 77067

== ENCOUNTER → 2022-07-16 13:37 | Outpatient (BNVA) | payer MEDICARE, MEDICAID, SELFPAY | PROVIDERS: PCP Nurse Practitioner; Referring Provider Nurse Practitioner; Visit Provider Surgery | DX: Z12.11 Encounter for screening for malignant neoplasm of colon (principal) ==

== ENCOUNTER 2022-08-09 06:24 | Day surgery (SDC) | payer MEDICARE, MEDICAID, SELFPAY ==
--- NOTE | 2022-08-09 05:20 | W.PM.DSUDISC ---
Discharge Plan Disposition Patient Disposition: HOME Condition: Good Discharge Details Reason For Visit: screening colonoscopy Attending Provider: Calin Barahona Primary Care Provider: Tenisha Yepez Home Meds and New Rx's Prescriptions: Continued calcium carbonate-vitamin D3 500 mg-15 mcg (600 unit) tablet 1 tab PO DAILY Qty: 90 4RF docusate sodium 100 mg capsule 100 - 200 mg PO DAILY PRN (Reason: constipation) Qty: 60 12RF duloxetine 60 mg capsule,delayed release(DR/EC) 60 mg PO DAILY Qty: 90 4RF lisinopril 10 mg tablet 10 mg PO DAILY Qty: 90 4RF loratadine 10 mg tablet 10 mg PO daily prn Qty: 90 3RF meloxicam 7.5 mg tablet 7.5 mg PO BID PRN (Reason: joint pain) Qty: 180 4RF norethindrone acetate 5 mg tablet 5 mg PO DAILY Qty: 90 4RF Rx Instructions: one tablet daily. sertraline 100 mg tablet 100 mg PO DAILY Qty: 90 4RF omega-3 fatty acids 1,000 MG capsule 1 cap PO DAILY Rx Instructions: W/FLAXSEED multivitamin 1 EACH capsule 1 cap PO DAILY iowjfbwsdrb-rztktnnnm-abh C-Mn [Glucosamine 1500 Complex] 1 EACH capsule 1 cap PO DAILY Label Comments: 06/08/14 NOT ON LIST. SI Systane Liquid Gel 15 ML drops, liquid gel 1 drp Ophthalmic QID Rx Instructions: BOTH EYES acetaminophen [Tylenol Extra Strength] 500 MG tablet 1,000 mg PO TID PRN levothyroxine 75 mcg tablet 75 mcg PO DAILY Qty: 90 4RF Discontinued bisacodyl [Dulcolax (bisacodyl)] 5 mg tablet,delayed release (DR/EC) 5 mg PO ONCE Qty: 4 0RF Rx Instructions: Take according to provider's instructions for colonoscopy prep. polyethylene glycol 3350 17 gram/dose powder 17 g PO ONCE Qty: 238 0RF Rx Instructions: To be taken as directed by prescriber's office for colonoscopy prep. Discharge Instructions Instructions: Colonoscopy (DC) Additional Instructions: 1. If tolerated, consume a soft, low fiber diet for 1-2 days. [address] Do not drive, drink alcohol, operate machinery, make critical decisions, or do activities that require coordination or balance for 24 hours. 3. Because air was put into your colon during the procedure, expelling air from your rectum (passing gas or farting) is normal. 4. You may not have a bowel movement for 1-3 days because of the colonoscopy prep. This is normal. 5. Go directly to the emergency room if you notice any of the following: Develop chills (warm to touch), or if you have a thermometer and your temperature is above 101 Difficulty breathing or difficultly swallowing Persistent vomiting Severe abdominal pain, other than gas cramps Severe chest pain Black, tarry stools Any bleeding ? exceeding one tablespoon 6. Call your physician if the site where your intravenous was started becomes red, swollen, painful, and warm to touch. 7. Your physician has reviewed your pre-procedure medications. Please continue to take those medications as previously ordered. You will be given specific information/education regarding any changes to your medications before leaving. Activity:: Activity as Tolerated Diet:: As Tolerated Discharge Orders Discharge Orders: Discharge Order (Routine); Ordered 08/09/22 Ordered By: Calin Barahona Discharge Data Discharge Comment: normal colo- ten year follow up
--- NOTE | 2022-08-09 05:22 | COLE_ITS ---
Colonoscopy Report Date of procedure: 08/09/22 Pre-op diagnosis general: screening colonoscopy for routine health maintenance Post-op diagnosis procedure note: same Procedure: Screening colonoscopy Surgeon: Calin Barahona Anesthesia Type: General:No Airway Estimated blood loss (mL): 0 Pathology: none sent Complications: None Disposition: same day Indications: Screening colonoscopy for routine health maintenance Prep: Miralax/Dulcolax Procedure Start Time: 07:40 Procedure End Time: 08:14 Retraction Time: 19 Findings: normal colonoscopy Procedure Description: After the induction of monitored anesthetic care, and with the patient in left lateral decubitus position, I began by performing an external anorectal exam.? Perineum and skin were normal, as was the anal verge.? There was no evidence of external hemorrhoids.? Next, I performed a digital rectal exam.? I did not lacie reciate any abnormal findings.? Next, I advanced a colonoscope into the rectal vault.? I performed retroflexion.? I did not see signs of pathologic internal hemorrhoids.? Using insufflation, I then advanced the colonoscope beyond the rectal folds and into the sigmoid colon before advancing towards the cecum.? The quality of the prep was excellent.? The scope was noted to be in the cecum by identification of the ileocecal valve and appendiceal orifice.? I then began withdrawing the colonoscope using repeated irrigation as necessary for full evaluation of the colonic mucosa. ?Once the scope was withdrawn to the level of the rectum, great care was taken to examine portions of the rectal folds.? Finally, the scope was withdrawn and the patient was brought to the same-day surgery recovery unit as the anesthetic wore off. ?The findings and instructions were shared with the patient prior to discharge.
[2022-08-09 06:25] VITALS: BP 145/109; PULSE 118; RESP 20; TEMP 36.3; O2SAT 96
--- NOTE | 2022-08-09 06:55 | ANES.PREOP_ITS ---
General Info Date of Service Date Performed: 08/09/22 Height: 4 ft 11 in Weight: 64.41 kg Body Mass Index (BMI): 28.6 Surgical Procedure: Operation Date: 08/09/22 07:35 Proposed Procedure Side Surgeon rubén Barahona MD Meds Allergies and Home Medications Allergies Allergy/AdvReac Type Severity Reaction Status Date / Time No Known Allergies Allergy Verified 08/09/22 06:45 Home Medication Medication Instructions Recorded [id number] C-Mn 500 1 cap PO DAILY 02/13/13 mg-400 mg capsule (Glucosamine 1) multivitamin 1 cap PO DAILY 02/13/13 omega-3 fatty acids 1,000 mg 1 cap PO DAILY 02/13/13 capsule peg 400-propylene glycol 0.4 %-0.3 1 drp ophthalmic (eye) QID 02/13/13 % eye liquid gel drops (Systane Liquid Gel) acetaminophen 500 mg tablet 1,000 mg PO TID PRN 05/06/14 (Tylenol Extra Strength) levothyroxine 75 mcg tablet 75 mcg PO DAILY #90 tabs 12/28/21 calcium carbonate 500 mg-vitamin 1 tab PO DAILY #90 tabs 05/03/22 D3 15 mcg (600 unit) tablet docusate sodium 100 mg capsule 100 - 200 mg PO DAILY PRN 05/03/22 constipation #60 caps duloxetine 60 mg capsule,delayed 60 mg PO DAILY #90 caps 05/03/22 release lisinopril 10 mg tablet 10 mg PO DAILY #90 tabs 05/03/22 loratadine 10 mg tablet 10 mg PO daily prn #90 tab-caps 05/03/22 meloxicam 7.5 mg tablet 7.5 mg PO BID PRN joint pain #180 05/03/22 tab-caps norethindrone acetate 5 mg tablet 5 mg PO DAILY #90 tabs 05/03/22 sertraline 100 mg tablet 100 mg PO DAILY #90 tab-caps 05/03/22 Current Visit Medications: Current Medications Generic Name Dose Route Start Last Admin Trade Name Freq PRN Reason Stop Dose Admin Ringer's Solution 1,000 mls @ 80 mls/hr 08/09/22 06:00 IV 09/07/22 23:59 INFUSION JEANNA IV Miscellaneous Supplies 1 each 08/09/22 06:00 Iv Access IV 10/14/22 23:59 DIRECTED JEANNA Sodium Chloride 0 ml 08/09/22 06:00 Normal Saline Flush 10 Ml Syr IV 09/07/22 23:59 PRN PRN Sodium Chloride 0 ml 08/09/22 06:00 Normal Saline 10 Ml Vial IJ 09/07/22 23:59 DIRECTED PRN Sterile Water 0 ml 08/09/22 06:00 Water,Injection,Sterile 10 Ml Vial IJ 09/07/22 23:59 DIRECTED PRN PFSH Active Problems Active Problems: Problem Status Onset Code Depressive disorder F32.9 Gastroesophageal reflux disease with esophagitis K21.0 Hypothyroidism 08/05/13 E03.9 Mental retardation F79 Perimenopause 12/19/16 N95.1 Tendonitis of left rotator cuff 05/13/15 M75.82 Primary osteoarthritis of both knees M17.0 HTN (hypertension) I10 Low back pain M54.5 Abnormal mammogram R92.8 Overweight (BMI 25.0-29.9) E66.3 Screening for colon cancer Z12.11 Medical History Medical History Abdominal gas pain Abnormal uterine bleeding (AUB) 2015 episodic amenorrhea followed by heavy flow. 11/2016 D&C: proliferative endometrium. Rx for Norethindrone 5mg/day. No withdrawal bleed planned. Blindness of both eyes, impairment level not further specified (02/02/14) legally blind in both eyes-per mom states not 100% blind, and can get around, she needs somebody's arm to get around Bowel dysfunction Foot pain, bilateral (12/28/14) bilat AFO (Schein) Idiopathic scoliosis 05/08 [facility] [place] and fusion for cord compression Unsteady gait (02/02/14) due to scoliosis, T10-11 cord compression (improved post op) Surgical History Surgical History Back Surgery 05/19/14 Dr. Carlos Dilation and curettage (12/06/16) for eval of AUB. path: weakly proliferative endometrium. Rx with Norethindrone. Tobacco Smoking/Tobacco Use Status: Never Passive smoking exposure: Yes (sometimes brother) Second hand exposure: Yes Alcohol Alcohol Intake: never Substance Use Substance use: Never Substance use type: does not use Vital Signs and Lab Results Lab Results Blood Type / Crossmatch: No Data to Display Complete Blood Count: No Data to Display Complete Metabolic Panel: No Data to Display Liver Function Panel: No Data to Display Coagulation Panel: No Data to Display Cardiac Panel: No Data to Display Arterial Blood Gas: No Data to Display Venous Blood Gas: No Data to Display Pancreas Panel: No Data to Display Thyroid Panel: No Data to Display Infectious Disease: No Data to Display Blood Cultures: No Data to Display Toxicology Panel: No Data to Display Panel: No Data to Display Anesthesia Assessment and Plan Anesthesia History Personal History: No History of Anesthesia Complications Family History: No Family History of Anesthesia Complications Exercise Tolerance Exercise Tolerance: Metabolic Equivalents<4 Pertinent Negatives Pertinent Negatives: No Symptoms of GERD, No Major Cardiovascular Symptoms or Complaints, No Major Pulmonary Symptoms or Complaints and No History of CVA/TIA Cardiac & Pulmonary Exam Cardiac Exam: Normal S1/S2 Heart Sounds Pulmonary Exam: Clear Bilateral Breath Sounds Implantable Cardiac Device Does patient have a Pacemaker or an ICD?: No Airway Exam Known Difficult Airway: No Mallampati Class: 3 Mouth Opening: Narrow (< 3cm) Thyromental Distance: Greater than 3 cm Neck Range of Motion: Full ROM Neck Circumference: Normal Teeth Condition: Generalized Poor Dentition ASA Classification ASA Score: ASA 2 Emergency Case?: No NPO Status NPO Status: NPO Clears >2 hours, Solids >8 hours Status Status: Not Relevant due to Medical History Anesthesia Plan Resuscitation Status: Full Code Anesthesia Technique: General Anesthesia Airway Planned: Natural Airway Monitors Used: Standard Monitors
[2022-08-09] MEDS: Lactated Ringers 1,000 ML 80 ML IV (07:20)
[2022-08-09 07:31] VITALS: BMI 28.6
[2022-08-09 08:30] VITALS: BP 112/89; PULSE 94; RESP 20; TEMP 36.1; O2SAT 94
[2022-08-09 08:53] VITALS: BP 122/89; PULSE 91; RESP 18; TEMP 36.4; O2SAT 95
--- NOTE | 2022-08-09 09:55 | W.ANESPOSTOP ---
Postoperative Evaluation Date, Time and Location Date Performed: 08/09/22 Time Performed: 09:55 Patient Location: Day Surgery Unit Vital Signs Most Recent Imported Vital Signs: Most Recent Vital Signs Temp Pulse Resp BP Pulse Ox 36.4 C L 91 H 18 122/89 95 08/09/22 08:53 08/09/22 08:53 08/09/22 08:53 08/09/22 08:53 08/09/22 08:53 Pain Score Most Recent Pain Score: Most Recent Pain Score Pain Level 0 08/09/22 08:53 Assessment Mental Status: Awake (Alert & Oriented to Patient Baseline) Airway and Respiratory Function: Patent airway with normal (patient baseline) respiratory exam Cardiovascular Function: Hemodynamically Stable Hydration Status: Adequately Hydrated Nausea & Vomiting: No Nausea or Vomiting Pain: Pt. Denies Any Pain Peripheral Nerve Block: Patient did not receive a nerve block Postoperative Comments:: seen earlier today. alert to the patient sbaseline. dischssed care with the patient sfamily. all questoons answered.
== END 2022-08-09 09:22 | disposition home or self-care (01) ==
PROVIDERS: PCP Nurse Practitioner; Visit Provider Surgery
PROC: 0DJD8ZZ Inspection of Lower Intestinal Tract, Via Natural or Artificial Opening Endoscopic (ICD-10-PCS; CPT 45378; principal; 2022-08-09 07:30)
DX: Z12.11 Encounter for screening for malignant neoplasm of colon (principal); E03.9 Hypothyroidism, unspecified; K21.9 Gastro-esophageal reflux disease without esophagitis
CPT/HCPCS: G0121

== ENCOUNTER 2022-10-23 15:06 | Emergency (ER) | payer MEDICARE, MEDICAID, SELFPAY ==
[2022-10-23 15:30] VITALS: BP 135/88; PULSE 110; RESP 19; TEMP 36.6; O2SAT 98
--- NOTE | 2022-10-23 16:14 | DI.RAD_ITS ---
Exam(s) XR CHEST 2V PA LATERAL EXAM: XR CHEST 2V PA LATERAL CLINICAL HISTORY: shortness of breath. TECHNIQUE: 2D digital imaging was performed. COMPARISON: CR XR CHEST 2V PA LATERAL from 05/15/2019 FINDINGS: 2 views: A thoracolumbar scoliosis again noted. Heart size is normal. The mediastinum is not widened. Lungs are clear. No infiltrates nor pleural effusions. IMPRESSION: No acute pulmonary findings. Scoliosis again noted. DATA REPOSITORY: RADIATION DOSE DELIVERED:
[2022-10-23] MEDS: Acetaminophen 325 MG TAB 650 MG PO (17:46)
[2022-10-23 18:32] LABS: COVID-19 PCR Negative (Negative); Influenza A PCR Negative (Negative); Influenza B PCR Negative (Negative)
[2022-10-23 18:39] LABS: RSV PCR Positive (Negative); Source Nasopharynx
--- NOTE | 2022-10-23 18:54 | DI.VRAD_ITS ---
PROCEDURE INFORMATION: Exam: XR Chest Exam date and time: 10/23/2022 6:45 PM Age: 52 years old Clinical indication: Shortness of breath; Patient HX: SOB, rsv TECHNIQUE: Imaging protocol: Radiologic exam of the chest. Views: 2 views. COMPARISON: CR XR CHEST 2V PA LATERAL 05/15/2019 12:57 PM FINDINGS: Lungs: Chronic interstitial prominence. No consolidation. Pleural spaces: No pleural effusion. No pneumothorax. Heart/Mediastinum: No cardiomegaly. Bones/joints: Scoliosis is grossly stable IMPRESSION: No acute findings. Dictated and Authenticated by: Eduin Elias MD. Ordering:MYLES Stafford MD
[2022-10-23] MEDS: Dexamethasone 4 MG TAB PO (19:23)
--- NOTE | 2022-10-23 22:20 | ED.GENADUL_ITS ---
Discharge Plan Disposition Patient Disposition: Home Condition: Stable Discharge Details Clinical Impression: History of RSV infection Primary Care Provider: Martita Gong ED Provider: Nydia oGnzalez Home Meds and New Rx's Prescriptions: Continued calcium carbonate-vitamin D3 500 mg-15 mcg (600 unit) tablet 1 tab PO DAILY Qty: 90 4RF docusate sodium 100 mg capsule 100 - 200 mg PO DAILY PRN (Reason: constipation) Qty: 60 12RF duloxetine 60 mg capsule,delayed release(DR/EC) 60 mg PO DAILY Qty: 90 4RF lisinopril 10 mg tablet 10 mg PO DAILY Qty: 90 4RF loratadine 10 mg tablet 10 mg PO daily prn Qty: 90 3RF meloxicam 7.5 mg tablet 7.5 mg PO BID PRN (Reason: joint pain) Qty: 180 4RF norethindrone acetate 5 mg tablet 5 mg PO DAILY Qty: 90 4RF Rx Instructions: one tablet daily. sertraline 100 mg tablet 100 mg PO DAILY Qty: 90 4RF omega-3 fatty acids 1,000 MG capsule 1 cap PO DAILY Rx Instructions: W/FLAXSEED multivitamin 1 EACH capsule 1 cap PO DAILY [id number] C-Mn [Glucosamine 1500 Complex] 1 EACH capsule 1 cap PO DAILY Label Comments: 06/08/14 NOT ON LIST. SI Systane Liquid Gel 15 ML drops, liquid gel 1 drp Ophthalmic QID Rx Instructions: BOTH EYES acetaminophen [Tylenol Extra Strength] 500 MG tablet 1,000 mg PO TID PRN levothyroxine 75 mcg tablet 75 mcg PO DAILY Qty: 90 1RF Discharge Instructions Additional Instructions: Take the Decadron for the cough and the sore throat You have respiratory as a single virus, this is a viral illness that will likely resolve on its own You may use a humidifier in your room at night Please follow-up with your primary care physician in 24 to 48 hours for reassessment and return earlier should you have any worsening complaints Referrals: Martita Gong NP [Primary Care Provider] - 1 day Discharge Data Discharge Date/Time-TO BE ENTERED AT DEPARTURE: 10/23/22 19:25 Medical Decision Making X-ray does not show evidence of acute abnormality per virtual radiology interpretation my review Positive for RSV, made aware Vitals are stable Given dose of Decadron to help with cough Recheck in 24 to 48 hours Return precautions discussed and patient, family expressed understanding Medical Records Medical records reviewed: Yes I reviewed the patient's medical records. Lab Data Lab results reviewed: Yes I reviewed the patient's lab results. Sign Out No HPI General Date/Time Provider Initiated Documentation: 10/23/22 16:05 . HPI Narrative: This 52-year-old female with history of MR, hypertension, hypothyroidism presents with For a week of cough and sore throat. Denies fever. There is not been any reported vomiting or diarrhea. Mother is reportedly sick with same symptoms. Denies any chest pain or shortness of breath. Reports her throat, predominantly when she coughs. Denies any hemoptysis, recent flights, surgeries, long drives. Denies any fever or chills. Denies any nausea or vomiting. Related Data Home Medications Medication Instructions Recorded Confirmed [id number]-[id number] C-Mn 500 1 cap PO DAILY 02/13/13 08/09/22 mg-400 mg capsule (Glucosamine 1) multivitamin 1 cap PO DAILY 02/13/13 08/09/22 omega-3 fatty acids 1,000 mg 1 cap PO DAILY 02/13/13 08/09/22 capsule peg 400-propylene glycol 0.4 %-0.3 1 drp ophthalmic (eye) QID 02/13/13 08/09/22 % eye liquid gel drops (Systane Liquid Gel) acetaminophen 500 mg tablet 1,000 mg PO TID PRN 05/06/14 08/09/22 (Tylenol Extra Strength) calcium carbonate 500 mg-vitamin 1 tab PO DAILY #90 tabs 05/03/22 08/09/22 D3 15 mcg (600 unit) tablet docusate sodium 100 mg capsule 100 - 200 mg PO DAILY PRN 05/03/22 08/09/22 constipation #60 caps duloxetine 60 mg capsule,delayed 60 mg PO DAILY #90 caps 05/03/22 08/09/22 release lisinopril 10 mg tablet 10 mg PO DAILY #90 tabs 05/03/22 08/09/22 loratadine 10 mg tablet 10 mg PO daily prn #90 tab-caps 05/03/22 08/09/22 meloxicam 7.5 mg tablet 7.5 mg PO BID PRN joint pain #180 06/09/22 09/15/22 tab-caps norethindrone acetate 5 mg tablet 5 mg PO DAILY #90 tabs 05/03/22 08/09/22 sertraline 100 mg tablet 100 mg PO DAILY #90 tab-caps 05/03/22 08/09/22 levothyroxine 75 mcg tablet 75 mcg PO DAILY #90 tabs 08/14/22 Previous Rx's Medication Instructions Recorded calcium carbonate 500 mg-vitamin 1 tab PO DAILY #90 tabs 05/03/22 D3 15 mcg (600 unit) tablet docusate sodium 100 mg capsule 100 - 200 mg PO DAILY PRN 05/03/22 constipation #60 caps duloxetine 60 mg capsule,delayed 60 mg PO DAILY #90 caps 05/03/22 release lisinopril 10 mg tablet 10 mg PO DAILY #90 tabs 05/03/22 loratadine 10 mg tablet 10 mg PO daily prn #90 tab-caps 05/03/22 meloxicam 7.5 mg tablet 7.5 mg PO BID PRN joint pain #180 05/03/22 tab-caps norethindrone acetate 5 mg tablet 5 mg PO DAILY #90 tabs 05/03/22 sertraline 100 mg tablet 100 mg PO DAILY #90 tab-caps 05/03/22 levothyroxine 75 mcg tablet 75 mcg PO DAILY #90 tabs 08/14/22 Allergies Allergy/AdvReac Type Severity Reaction Status Date / Time No Known Allergies Allergy Verified 08/09/22 06:45 General Stated Complaint: RespSymp JANNET: 4 Review of Systems Unobtainable due to (Limited secondary to baseline mentation) PFSH All Active Problems (Updated 10/23/22 @ 19:14 by MELINDA Joshi) Depressive disorder (Chronic) Gastroesophageal reflux disease with esophagitis (Chronic) Hypothyroidism (Chronic 08/05/13) Mental retardation (Chronic) Perimenopause (Acute 12/19/16) Tendonitis of left rotator cuff (Chronic 05/13/15) Primary osteoarthritis of both knees (Chronic) HTN (hypertension) (Chronic) Low back pain (Acute) Abnormal mammogram (Acute) Overweight (BMI 25.0-29.9) (Acute) Screening for colon cancer (Acute) History of RSV infection (Acute) Medical History (Updated 10/23/22 @ 19:14 by MELINDA Joshi) Abdominal gas pain Abnormal uterine bleeding (AUB) 2016 episodic amenorrhea followed by heavy flow. 11/2016 D&C: proliferative endometrium. Rx for Norethindrone 5mg/day. No withdrawal bleed planned. Blindness of both eyes, impairment level not further specified (02/02/14) legally blind in both eyes-per mom states not 100% blind, and can get around, she needs somebody's arm to get around Bowel dysfunction Foot pain, bilateral (12/28/14) bilat AFO (Schein) Idiopathic scoliosis 05/08 [facility] [place] T8-12 laminectomy and fusion for cord compression Unsteady gait (02/02/14) due to scoliosis, T10-11 cord compression (improved post op) Surgical History Back Surgery 05/19/14 Dr. Carlos Dilation and curettage (12/06/16) for eval of AUB. path: weakly proliferative endometrium. Rx with No rethindrone. Family History Mother Epilepsy Essential hypertension Father , 74 Mariama syndrome Palma's palsy Myasthenia gravis Stroke Brother Retinitis pigmentosa Essential hypertension Depression Maternal Grandfather , 61 Essential hypertension Heart disease Hyperlipidemia Paternal Grandfather Mariama syndrome Retinitis pigmentosa Maternal Grandmother Diabetes Dementia Depression Skin cancer Paternal Grandmother Diabetes Heart disease Stroke Cancer Social History Smoking/Tobacco Use Status: Never Second Hand Exposure: Yes Smoking risk assessment performed?: Yes Alcohol Intake: never Drug use: Never Substance use type: does not use Caregiver/Support person: Yes Housing: apartment Communication Needs: Blind, Corrective Lenses, Cannot Read and Language Barriers Do you need help understanding health information?: Always Sexually active: No How often do you talk on the phone with friends or family?: three or more times per week How often do you get together with friends or relatives?: three or more times per week How often do you attend sabianist or restoration services?: 4 or more times per year Panel score (0-1 are the most socially isolated patients): 2 What type of physical activity do you participate in: walking Duration: 15-30 minutes/day Frequency: 3-4 times per week Lizzy/Spiritism: Scientologist Seatbelt use: always Do you feel safe at home: Yes Do you feel safe in your relationship?: Yes Additional Social history: Unable to assess privatley Exam Const General: cooperative, comfortable and no acute distress Eyes Pupils: PERRL Resp Effort & Inspection: normal respiratory effort Auscultation: clear to auscultation bilaterally Cardio Rate: regular rate Rhythm: regular rhythm GI Other: Nontender abdominal exam Skin General skin exam: no rashes or lesions noted Neuro General: patient alert Course Vital Signs Vital signs: Vital Signs Temperature 36.6 C 10/23/22 15:30 Pulse 110 H 10/23/22 15:30 Respiratory Rate 19 10/23/22 15:30 Blood Pressure 135/88 10/23/22 15:30 Pulse Oximetry 98 10/23/22 15:30 Temperature 36.6 C 10/23/22 15:30 Temperature Source Tympanic 10/23/22 15:30 Pulse 110 H 10/23/22 15:30 Respiratory Rate 19 10/23/22 15:30 Respiratory Effort Non-Labored 10/23/22 17:00 Respiratory Depth Normal 10/23/22 17:00 Blood Pressure 135/88 10/23/22 15:30 Blood Pressure Position Supine 10/23/22 15:30 Pulse Oximetry 98 10/23/22 15:30 Oxygen Delivery Method Room Air 10/23/22 15:30 Oxygen Flow Rate 0 10/23/22 15:30 Pain Level 0 10/23/22 19:23 Lab/Test Results Lab/Test Results: Laboratory Tests Range/Units 10/23/22 17:51 COVID-19 Source Nasopharynx SARS-CoV-2 (PCR) (Negative) Negative Influenza Type A (PCR) (Negative) Negative Influenza Type B (PCR) (Negative) Negative RSV (PCR) (Negative) Positive A*
== END 2022-10-23 19:25 | disposition home or self-care (01) ==
PROVIDERS: Emergency Provider Physician Assistant; PCP Nurse Practitioner Family
DX: R05.1 Acute cough (principal); B97.4 Respiratory syncytial virus as the cause of diseases classified elsewhere; Z20.822 Contact with and (suspected) exposure to COVID-19
CPT/HCPCS: 87637; 99283; 71046; J8540

== ENCOUNTER 2023-05-08 02:52 | Outpatient (CLI) | payer MEDICARE, MEDICAID, SELFPAY ==
--- NOTE | 2023-05-08 07:45 | DI.MAMMO_ITS ---
Exam(s) MAMMO DIAGNOSTIC BI EXAM: MAMMO DIAGNOSTIC BI CLINICAL HISTORY: 3-6 mos f/u,f/u mammo, r92.8,z09. TECHNIQUE: Bilateral CC and MLO mammographic images were obtained with 3D tomosynthesis technique an sveta utilizing computer aided detection (CAD). COMPARISON: Prior mammograms were reviewed, the most recent being June 2022. This is apparently a six-month follow-up 4 findings described on 06/25/2022. FINDINGS: Diagnostic bilateral mammogram: There has been no significant change in the appearance and distribution of the fibroglandular tissue. There are few small benign-appearing nodules in the breast but these are actually less evident on the prior mammogram. There are no new spiculated masses nor malignant-appearing microcalcification groups in either breast . No new architectural distortion or skin thickening-traction. IMPRESSION: Stable benign-appearing mammographic findings. No radiographic evidence of malignancy. Appropriate follow-up is to keep this patient on a yearly mammogram schedule. The patient was informed of the findings and follow-up recommendations prior to leaving the [facility]. BI-RADS Category 2 - Benign Findings Breast Density - Category B - Scattered areas of fibroglandular density Breast density Category C or D implies that the patient has dense breast tissue. Dense breast tissue can make it harder to find cancer on a mammogram. Dense breast tissue is also associated with an incr eased risk of breast cancer. This information about the result of the mammogram report was provided to the patient to raise their awareness. Use this report when you speak with the patient about their risks for breast cancer, which includes their family history. At that time, you may recommend additional screening tests (Ultrasoun d or MRI) as these tests may add significant information. A negative radiographic report should not delay biopsy if a dominant or clinically suspicious mass is present. Up to ten percent of cancers are not identified on mammography. A negative report may reinforce clinical impression. Adenosis and dense breasts may obscure an underlying neoplasm. False positive reports average 6 to 10%. Patient will receive a letter notifying them of these results.
== END 2023-05-08 03:12 ==
LOC: DI 02:53
PROVIDERS: PCP Nurse Practitioner Family; Visit Provider Family Medicine
DX: Z09 Encounter for follow-up examination after completed treatment for conditions other than malignant neoplasm; R92.8 Other abnormal and inconclusive findings on diagnostic imaging of breast
CPT/HCPCS: 77062; 77066; G0279

== ENCOUNTER 2023-07-23 03:21 | Outpatient (CLI) | payer MEDICARE, MEDICAID, SELFPAY ==
[2023-07-23 12:17] LABS: HCT 40.1 % (36.0-46.0); HGB 13.3 g/dL (11.2-15.7); MCH 33.2 pg (27.0-33.0); MCHC 33.2 % (32.0-36.0); MCV 100 fL (80-95); MPV 9.9 fL (8.0-11.0); Platelet Count 244 10^3/uL (130-400); RBC 4.01 10^6/uL (3.93-5.22); RDW 12.3 % (11.7-14.6); RDW-SD 45.4 fL; WBC 4.26 10^3/uL (4.4-10.8)
[2023-07-23 13:04] LABS: Anion Gap 8.6 mmol/L (3-11); BUN 20 mg/dL (7-18); CO2 25.4 mmol/L (21.0-32.0); CREATININE 0.9 mg/dL (0.55-1.02); Calcium 8.8 mg/dL (8.5-10.1); Calculated LDL 148 mg/dL (<100); Chloride 104 mmol/L (98-107); Cholesterol 211 mg/dL (<200); Glucose 82 mg/dL (74-106); HDL Cholesterol 48 mg/dL (40-60); Potassium 3.9 mmol/L (3.5-5.1); Sodium 138 mmol/L (136-145); TSH (W/Ref FT4) 3.46 uIU/mL (0.36-3.74); Triglyceride 78 mg/dL (<150)
== END 2023-07-23 03:22 | disposition home or self-care (01) ==
LOC: LBO 03:21
PROVIDERS: PCP Nurse Practitioner Family; Visit Provider Nurse Practitioner Family
DX: E03.9 Hypothyroidism, unspecified (principal); E66.3 Overweight; F32.9 Major depressive disorder, single episode, unspecified; I10 Essential (primary) hypertension; M17.0 Bilateral primary osteoarthritis of knee; Z00.00 Encounter for general adult medical examination without abnormal findings
CPT/HCPCS: 36415; 80048; 80061; 85027; 84443

== ENCOUNTER 2025-06-04 10:17 | Day surgery (SDC) | payer MEDICARE, MEDICAID, SELFPAY ==
[2025-06-04] VITALS (15 sets, daily range): BP systolic 93–132; BP diastolic 39–98; PULSE 72–113; RESP 15–27; TEMP 36.2–36.6; O2SAT 94–100; BMI 34.3
[2025-06-04] MEDS: Ketorolac 15 MG/ML VIAL IVP (11:57)
[2025-06-04 12:00] LABS: Abs Immature Grans 0.05 10^3/uL (0.0-0.06); HCT 37.2 % (36.0-46.0); HGB 12.3 g/dL (11.2-15.7); Immature Grans % 0.5 %; MCH 32.3 pg (27.0-33.0); MCHC 33.1 % (32.0-36.0); MCV 98 fL (80-95); MPV 9.5 fL (8.0-11.0); Platelet Count 305 10^3/uL (130-400); RBC 3.81 10^6/uL (3.93-5.22); RDW 11.6 % (11.7-14.6); RDW-SD 41.6 fL; WBC 9.46 10^3/uL (4.4-10.8)
[2025-06-04 12:13] LABS: Anion Gap 12.1 mmol/L (3-11); BUN 18 mg/dL (7-18); CO2 23.9 mmol/L (21.0-32.0); Calcium 9.1 mg/dL (8.5-10.1); Chloride 101 mmol/L (98-107); Estimated GFR 88.05 (mL/min/1.73m2); Glucose 128 mg/dL (74-106); Potassium 4.2 mmol/L (3.5-5.1); Sodium 137 mmol/L (136-145)
[2025-06-04 12:20] LABS: Hemoglobin A1C 5.7 % (<5.7)
--- NOTE | 2025-06-04 13:50 | ANES.PREOP_ITS ---
General Info Date of Service Date Performed: 06/04/25 Height: 4 ft 11 in Weight: 77.111 kg Body Mass Index (BMI): 34.3 Surgical Procedure: Operation Date: 06/04/25 15:10 Proposed Procedure Side Surgeon p I&D Axillary Abscess Ahmet Mccloud DO Meds Allergies and Home Medications Allergies Allergy/AdvReac Type Severity Reaction Status Date / Time No Known Allergies Allergy Verified 06/04/25 10:27 Home Medication ?Medication ?Instructions ?Recorded [id number] C-Mn 500 1 cap PO DAILY 01/24 01/07 mg-400 mg capsule (Glucosamine 1) multivitamin 1 cap PO DAILY 02/13/13 omega-3 fatty acids 1,000 mg 1 cap PO DAILY 02/13/13 capsule peg 400-propylene glycol 0.4 %-0.3 1 drp ophthalmic (e ye) QID 02/13/13 % eye liquid gel drops (Systane Liquid Gel) acetaminophen 500 mg tablet 1,000 mg PO TID PRN (Tylenol Extra Strength) calcium 500 mg (as 1 tab PO DAILY #90 tabs 08/16 carbonate)-vitamin D3 15 mcg (600 unit) tablet ibuprofen 400 mg tablet 400 mg PO TID PRN pain #90 t abs 08/01/23 permethrin 1 % topical liquid 60 ml topical ONCE #59 m L 01/13/24 (Lice Treatment) docusate sodium 100 mg capsule 100 - 200 mg (1 - 2 x 1 00 mg) PO 06/30/24 DAILY PRN constipation #180 caps duloxetine 60 mg capsule,delayed 60 mg PO DAILY #90 ca ps 06/30/24 release levothyroxine 75 mcg tablet 75 mcg PO DAILY #90 tabs 0 06/30/24 lisinopril 10 mg tablet 10 mg PO DAILY #90 tabs 080 05/18 loratadine 10 mg tablet 10 mg PO daily prn #90 tab-c aps 06/30/24 meloxicam 7.5 mg tablet 7.5 mg PO BID PRN joint pain #180 06/30/24 tab-caps norethindrone acetate 5 mg tablet 5 mg PO DAILY #90 ta bs 06/30/24 sertraline 100 mg tablet 100 mg PO DAILY #90 tab-caps 06/30/24 Current Visit Medications: Current Medications Generic Name Dose Route Start Last Admin Trade Name Negro PRN Reason Stop Dose Admin IV Miscellaneous Supplies 1 each 06/04/25 11:30 Iv Access-Emergency Dept IV DIRECTED JEANNA Sodium Chloride 0 ml 06/04/25 11:22 Normal Saline Flush 10 Ml Syr IVP PRN PRN Sodium Chloride 0 ml 06/04/25 20:00 Normal Saline Flush 10 Ml Syr IVP BID JEANNA Sodium Chloride 0 ml 06/04/25 11:22 Normal Saline 10 Ml Vial IJ DIRECTED PRN PFSH Active Problems Active Problems: Problem Status Onset Code Depressive disorder Chronic F32.9 Gastroesophageal reflux disease with esophagitis Chronic K21.0 Hypothyroidism Chronic 08/05/13 E03.9 Mental retardation Chronic F79 Perimenopause Acute 12/19/16 N95.1 Tendonitis of left rotator cuff Chronic 05/13/15 M75.82 Primary osteoarthritis of both knees Chronic M17.0 HTN (hypertension) Chronic I10 Low back pain Acute M54.5 Abnormal mammogram Acute R92.8 Overweight (BMI 25.0-29.9) Acute E66.3 Screening for colon cancer Acute Z12.11 Medical History Medical History (Updated 11/23/22 @ 00:03 by CORY MARTINEZ) Bowel dysfunction Abdominal gas pain Unsteady gait (02/02/14) due to scoliosis, T10-11 cord compression (improved post op) Idiopathic scoliosis 05/08 [facility] [place] T8-12 laminectomy and fusion for cord compression Foot pain, bilateral (12/28/14) bilat AFO (Sche[place]) Blindness of both eyes, impairment level not further specified (02/02/14) legally blind in both eyes-per mom states not 100% blind, and can get around, she needs somebody's arm to get around Abnormal uterine bleeding (AUB) 2015 episodic amenorrhea followed by heavy flow. 11/2016 D&C: proliferative endometrium. Rx for Norethindrone 5mg/day. No withdrawal bleed planned. Surgical History Surgical History Dilation and curettage (12/06/16) for eval of AUB. path: weakly proliferative endometrium. Rx with Norethindrone. Back Surgery 05/19/14 Dr. Carlos Tobacco Smoking/Tobacco Use Status: Never Passive smoking exposure: Yes (sometimes brother) Second hand exposure: Yes Alcohol Alcohol Intake: never Substance Use Substance use: Never Substance use type: does not use Vital Signs and Lab Results Vital Signs Most Recent Vital Signs in EMR: Most Recent Vital Signs Temp Pulse Resp BP Pulse Ox 36.6 C 72 20 115/62 94 06/04/25 10:24 06/04/25 13:34 06/04/25 10:24 06/04/25 13:34 06/04/25 10:24 Lab Results 06/04/25 11:55 06/04/25 11:55 Complete Blood Count: 2 WBC, (4.4-10.8) 9.46 10^3/uL Today, 11:55 RBC, (3.93-5.22) 3.81 10^6/uL L Today, 11:55 Hgb, (11.2-15.7) 12.3 g/dL Today, 11:55 Hct, (36.0-46.0) 37.2 % Today, 11:55 Plt Count, (130-400) 305 10^3/uL Today, 11:55 Complete Metabolic Panel: 2 Sodium, (136-145) 137 mmol/L Today, 11:55 Potassium, (3.5-5.1) 4.2 mmol/L Today, 11:55 Chloride, (98-107) 101 mmol/L Today, 11:55 Carbon Dioxide, (21.0-32.0) 23.9 mmol/L Today, 11:55 BUN, (7-18) 18 mg/dL Today, 11:55 Creatinine, (0.55-1.02) 0.8 mg/dL Today, 11:55 Est GFR (CKD-EPI 2020), (mL/min/1.73m2) 88.05 Today, 11:55 Calcium, (8.5-10.1) 9.1 mg/dL Today, 11:55 Glucose, (74-106) 128 mg/dL H Today, 11:55 Hemoglobin A1c, (<5.7) 5.7 % Today, 11:55 Anesthesia Assessment and Plan Anesthesia History Personal History: No History of Anesthesia Complications Family History: No Family History of Anesthesia Complications Exercise Tolerance Exercise Tolerance: Metabolic Equivalents<4 Pertinent Negatives Pertinent Negatives: No Symptoms of GERD Cardiac & Pulmonary Exam Cardiac Exam: Normal S1/S2 Heart Sounds Pulmonary Exam: Clear Bilateral Breath Sounds Implantable Cardiac Device Does patient have a Pacemaker or an ICD?: No Airway Exam Known Difficult Airway: No Mallampati Class: 3 Mouth Opening: Narrow (< 3cm) Thyromental Distance: Greater than 3 cm Neck Range of Motion: Full ROM Neck Circumference: Normal Teeth Condition: Generalized Poor Dentition ASA Classification ASA Score: ASA 3 Emergency Case?: No NPO Status NPO Status: NPO Clears >2 hours, Solids >8 hours Status Status: Not Relevant due to Medical History Anesthesia Plan Resuscitation Status: Full Code Anesthesia Technique: General Anesthesia Airway Planned: LMA Monitors Used: Standard Monitors
--- NOTE | 2025-06-04 14:30 | HPE_ITS ---
Date of service: 06/04/25 Time of Service: 14:30 Assessment and Plan Assessment and plan (1) Abscess of axilla, right: Status: Acute Assessment and plan: 55-year-old - developmentally delayed female with multiple medical comorbidities presenting with 2 days of right axillary pain and swelling. Recent right back abscess, which spontaneously drained. No constitutional symptoms. Also left nose cellulitis with eschar. Reportedly patient lets family dog lick her nose without stopping. Suspect MRSA present in the home with pets and brother having similar symptoms recently - IV antibiotics in the emergency department - Due to history of need for procedural sedation, will proceed to the operating room for incision and drainage of right axilla - All risks, benefits, alternatives, complications discussed with patient and her family at bedside including brother, who is medical decision maker. All questions answered - Discussed possible wound care scenarios with family members in order to facilitate home care, including daily showers of the area with warm soapy water - Will likely discharge on p.o. antibiotics postop - Augmentin - Discussed probiotic to avoid diarrhea - Will discharge with pain medication (2) HTN (hypertension): Status: Chronic (3) Hypothyroidism: Status: Chronic (4) Mental retardation: Status: Chronic History of Present Illness History of Present Illness Chief Complaint: right axilla pain Narrative: 55-year-old female with history of developmental delay and hypothyroidism brought by family due to patient complaints of right axillary pain. Family states she had a abscess on the right back/posterior axilla which spontaneously self drained about a week ago. Over the last 2 days she has had increased pain and swelling in the right axilla, no drainage. No fevers or chills reported. Patient denies chest pain or shortness of breath. Patient also has a nose lesion, believed to be secondary to dog licking the patient's face. Patient routinely requires sedation for dental procedures. ED unable to adequately access and drain the abscess in their department PMH: Developmental delay, hypothyroidism, depression, GERD, hypertension PSH: Lumbar fusion, colonoscopy Review of Systems Constitutional Constitutional: Denies body ache(s), Denies chills, Denies fever(s) and Denies night sweats Cardiovascular Cardiovascular: Denies chest pain, Denies irregular heart rhythm and Denies dyspnea Respiratory Respiratory: Denies cough and Denies dyspnea Gastrointestinal Gastrointestinal: Denies abdominal pain, Denies constipation and Denies diarrhea Musculoskeletal Musculoskeletal: Denies numbness and Denies tingling Neurologic Neurologic: Denies behavioral changes, Denies burning sensations, Denies confusion, Denies numbness, Denies sensory deficit and Denies tingling Psychiatric Psychiatric: Denies behavioral changes and Denies confusion Hematologic/Lymphatic Hematologic/Lymphatic: Denies easy bleeding and Denies easy bruising PFSH All Active Problems (Updated 06/04/25 @ 14:41 by Ahmet Mccloud DO) Abscess of axilla, right (Acute) Depressive disorder (Chronic) Gastroesophageal reflux disease with esophagitis (Chronic) Hypothyroidism (Chronic 08/05/13) Mental retardation (Chronic) Perimenopause (Acute 12/19/16) Tendonitis of left rotator cuff (Chronic 05/13/15) Primary osteoarthritis of both knees (Chronic) HTN (hypertension) (Chronic) Low back pain (Acute) Abnormal mammogram (Acute) Overweight (BMI 25.0-29.9) (Acute) Screening for colon cancer (Acute) Medical History Bowel dysfunction Abdominal gas pain Unsteady gait (02/02/14) due to scoliosis, T10-11 cord compression (improved post op) Idiopathic scoliosis 05/08 [facility] [place] T8-12 laminectomy and fusion for cord compression Foot pain, bilateral (12/28/14) bilat AFO (Schein) Blindness of both eyes, impairment level not further specified (02/02/14) legally blind in both eyes-per mom states not 100% blind, and can get around, she needs somebody's arm to get around Abnormal uterine bleeding (AUB) 2015 episodic amenorrhea followed by heavy flow. 11/2016 D&C: proliferative endometrium. Rx for Norethindrone 5mg/day. No withdrawal bleed planned. Surgical History Dilation and curettage (12/06/16) for eval of AUB. path: weakly proliferative endometrium. Rx with Norethindrone. Back Surgery 05/19/14 Dr. Carlos Family History Mother Epilepsy Essential hypertension Father , 74 Mariama syndrome Palma's palsy Myasthenia gravis Stroke Brother Retinitis pigmentosa Essential hypertension Depression Maternal Grandfather , 61 Essential hypertension Heart disease Hyperlipidemia Paternal Grandfather Mariama syndrome Retinitis pigmentosa Maternal Grandmother Diabetes Dementia Depression Skin cancer Paternal Grandmother Diabetes Heart disease Stroke Cancer Social History Smoking/Tobacco Use Status: Never Second Hand Exposure: Yes Smoking risk assessment performed?: Yes Alcohol Intake: never Drug use: Never Substance use type: does not use Caregiver/Support person: Yes Housing: apartment Communication Needs: Blind, Corrective Lenses, Cannot Read and Language Barriers Do you need help understanding health information?: Always Sexually active: No How often do you talk on the phone with friends or family?: three or more times per week How often do you get together with friends or relatives?: three or more times per week How often do you attend rastafarian or zoroastrian services?: 4 or more times per year Panel score (0-1 are the most socially isolated patients): 2 What type of physical activity do you participate in: walking Duration: 15-30 minutes/day Frequency: 3-4 times per week Lizzy/Voodoo: Mormon Seatbelt use: always Do you feel safe at home: Yes Do you feel safe in your relationship?: Yes Additional Social history: Unable to assess [facility] Allergies and Home Medications Allergies Allergy/AdvReac Type Severity Reaction Status Date / Time No Known Allergies Allergy Verified 06/04/25 14:18 Home Medications ?Medication ?Instructions ?Recorded ?Confirmed ?Type [id number] C-Mn 500 1 cap PO DAILY 01/2406/04/25 History mg-400 mg capsule (Glucosamine 1) multivitamin 1 cap PO DAILY 02/13/1305/25 History omega-3 fatty acids 1,000 mg 1 cap PO DAILY 02/13/13 0 06/04/25 History capsule peg 400-propylene glycol 0.4 %-0.3 1 drp ophthalmic (e ye) QID 02/13/13 06/04/25 History % eye liquid gel drops (Systane Liquid Gel) acetaminophen 500 mg tablet 1,000 mg PO TID PRN 06/04/25 History (Tylenol Extra Strength) calcium 500 mg (as 1 tab PO DAILY #90 tabs 08/1606/04/25 Rx carbonate)-vitamin D3 15 mcg (600 unit) tablet ibuprofen 400 mg tablet 400 mg PO TID PRN pain #90 t abs 08/01/23 06/04/25 Rx docusate sodium 100 mg capsule 100 - 200 mg (1 - 2 x 1 00 mg) PO 06/30/24 06/04/25 Rx DAILY PRN constipation #180 caps duloxetine 60 mg capsule,delayed 60 mg PO DAILY #90 ca ps 06/30/24 06/04/25 Rx release levothyroxine 75 mcg tablet 75 mcg PO DAILY #90 tabs 0 06/30/24 06/04/25 Rx lisinopril 10 mg tablet 10 mg PO DAILY #90 tabs 05/1806/04/25 Rx loratadine 10 mg tablet 10 mg PO daily prn #90 tab-c aps 06/30/24 06/04/25 Rx meloxicam 7.5 mg tablet 7.5 mg PO BID PRN joint pain #180 06/30/24 06/04/25 Rx tab-caps norethindrone acetate 5 mg tablet 5 mg PO DAILY #90 ta bs 06/30/24 06/04/25 Rx sertraline 100 mg tablet 100 mg PO DAILY #90 tab-caps 06/30/24 06/04/25 Rx Exam Const Nutritional Appearance: well nourished Orientation: alert and awake Limitations: other limitations (baseline developmental status) [facility] General nose exam: external nose abnormal (erythema was scabbing left lateral nares) Resp Effort & Inspection: normal respiratory effort Cardio Rate: regular rate Skin Lesions: lesion noted (fluctuant swelling right axilla x3, largest 3cm inferior aspect of axilla) right axilla and other (healing lesson right posterior axilla / back) Neuro General: patient alert and patient awake Cognition: normal cognition (baseline) Speech: speech normal (baseline for patient) Results Labs 06/04/25 11:55 06/04/25 11:55 Labs: Laboratory Results - last 24 hr 06/04/25 11:55 WBC 9.46 RBC 3.81 L Hgb 12.3 Hct 37.2 MCV 98 H MCH 32.3 MCHC 33.1 RDW 11.6 L Plt Count 305 MPV 9.5 Immature Gran % 0.5 Neutrophils % 77.2 Lymphocytes % 11.7 Monocytes % 9.0 Eosinophils % 1.1 Basophils % 0.5 Nucleated RBC % 0.0 Absolute Neutrophils 7.30 H Absolute Lymphocytes 1.11 L Absolute Monocytes 0.85 H Absolute Eosinophils 0.10 Absolute Basophils 0.05 Sodium 137 Potassium 4.2 Chloride 101 Carbon Dioxide 23.9 Anion Gap 12.1 H BUN 18 Creatinine 0.8 Est GFR (CKD-EPI 2020) 88.05 Glucose 128 H Hemoglobin A1c 5.7 Calcium 9.1 Last Vital Signs Temp 36.6 C 06/04/25 10:24 Pulse 72 06/04/25 13:34 Resp 20 06/04/25 10:24 BP 115/62 06/04/25 13:34 Pulse Ox 94 06/04/25 10:24 Time Spent Time spent with Patient: 55-74 minutes Time was spent: preparing to see the patient(eg.review tests), obtaining and/or reviewing separately otained hiistory, ordering medications,tests, procedures, referring, communicating with other health rehab care assistant, counseling the patient and care coordination
[2025-06-04] MEDS: Normal Saline Flush 10 ML SYR IVP (14:45)
[2025-06-04] MEDS: Lactated Ringers 1,000 ML 80 ML IV (14:46)
[2025-06-04] MEDS: ceFAZolin 2 GM/50 ML BAG IVPB (16:09)
--- NOTE | 2025-06-04 16:38 | ROE_ITS ---
Operative Note Operative Note PRE-OP DIAGNOSIS: Right axillary abscess Right axillary abscess x3 Nose abscess PROCEDURE: Incision and drainage right axillary abscess x3 Blunt debridement right axillary abscess x3 SURGEON: Ahmet Mccloud ANESTHESIA TYPE: General LMA/ETT Refer to Anesthesia Record ESTIMATED BLOOD LOSS: 2.4 PATHOLOGY: other (clutures) COMPLICATIONS: None Patient was transported to: PACU Patient's condition: stable Implants: none Indications: 55-year-old development delayed delayed female presenting with right axillary pain and swelling. Exam consistent with right axillary abscess x 3 Findings: 1. Inferior axillary abscess 2x1.5x3 cm 2. Middle axillary abscess [id number] 3. Superior axillary abscess [id number] Procedure Description: After consent was obtained from family and confirmed to be on the chart, patient was taken to the operating room. She was transferred on the operating room table and positioned supine with right arm out. Anesthesia was induced, and once an adequate level was achieved an LMA was placed. Right axilla was then prepped with ChloraPrep and draped in the standard sterile fashion. Timeout was performed confirming proper patient, procedure, indication, location with all in attendance and agreement. Starting with the largest abscess at the inferior aspect of the axillary fold, stab incision was made with a 15 blade scalpel. Tract was dilated with hemostats and there was immediate return of purulent material. Culture swabs were taken. After swabs were taken, patient was given 2 g of Ancef. Probing the cavity, incision was enlarged to 2x1.5cm allow adequate drainage of the abscess. That abscess cavity was 3cm deep. The base was bluntly debrided using gauze. Hemostasis was ensured and wound was packed with a raytec. Process was repeated for the mid and superior axillary abscesses ? stab incision was followed by probing of the wound, enlarging of the incision, and blunt debridement at the base with gauze. Mid axillary abscess measured 1 x 1 x 3 cm. Superior axillary abscess measured 1 x 1 x 1 cm. All abscess cavities were then copiously irrigated prior to being packed with half-inch iodoform gauze. All abscesses were covered with an ABD dressing and Medipore tape. With procedure complete, patient was then awoken in the OR and transferred to [facility], prior to being taken to PACU for recovery. All sponge, needle, instrument counts were reported as complete. Patient appeared to tolerate the procedure well and no complications were appreciated. Of note, while transferring the patient pressure was applied to the ED lesion on her nose with return of purulent drainage. Area was covered with a moist gauze. Ahmet Mccloud DO, FACS Date of Procedure: 06/04/25
--- NOTE | 2025-06-04 17:17 | W.ANESPOSTOP ---
Postoperative Evaluation Date, Time and Location Date Performed: 06/04/25 Time Performed: 17:17 Patient Location: Day Surgery Unit Vital Signs Most Recent Imported Vital Signs: Most Recent Vital Signs Temp Pulse Resp BP Pulse Ox 36.2 C L 104 H 20 94/75 L 97 06/04/25 16:52 06/04/25 16:52 06/04/25 16:52 06/04/25 16:52 06/04/25 16:52 Pain Score Most Recent Pain Score: Most Recent Pain Score Pain Level 10 06/04/25 10:24 Assessment Mental Status: Awake (Alert & Oriented to Patient Baseline) Airway and Respiratory Function: Patent airway with normal (patient baseline) respiratory exam Cardiovascular Function: Hemodynamically Stable Hydration Status: Adequately Hydrated Nausea & Vomiting: No Nausea or Vomiting Pain: Pt. Denies Any Pain Peripheral Nerve Block: Patient did not receive a nerve block
--- NOTE | 2025-06-04 17:35 | W.ED.GENAD ---
Discharge Plan Disposition Patient Disposition: Other Disposition Not Listed Other Facility: to OR for surgical procedure Discharge Details Clinical Impression: Abscess of axilla, right Primary Care Provider: Martita Gong ED Provider: Regla Lindsay [facility] General Date/Time Provider Initiated Documentation: 06/04/25 10:28. [facility] Narrative: Socorro is a 55-year-old female who presents to the emergency department for evaluation of painful skin lesions on nose and armpit for 1.5 weeks. Lesions initially began as pimples, initially attributed to being licked by the dog on the face. The lesions on her nose have become scabs from her scratching at them. Has multiple abscesses also in the armpits. Denies associated fever/chills, nausea/vomiting, change in appetite. Last antibiotics greater than 6 months ago past medical history significant for mental retardation, GERD, HTN,. Related Data Home Medications ?Medication ?Instructions ?Recorded ?Confirmed [id number] C-Mn 500 1 cap PO DAILY 02/13/13 06/04/25 mg-400 mg capsule (Glucosamine 1) multivitamin 1 cap PO DAILY 02/13/13 06/04/25 omega-3 fatty acids 1,000 mg 1 cap PO DAILY 02/13/13 06/04/25 capsule peg 400-propylene glycol 0.4 %-0.3 1 drp ophthalmic (eye) QID 02/13/13 06/04/25 % eye liquid gel drops (Systane Liquid Gel) acetaminophen 500 mg tablet 1,000 mg PO TID PRN 05/06/14 06/04/25 (Tylenol Extra Strength) calcium 500 mg (as 1 tab PO DAILY #90 tabs 05/03/22 06/04/25 carbonate)-vitamin D3 15 mcg (600 unit) tablet ibuprofen 400 mg tablet 400 mg PO TID PRN pain #90 tabs 08/01/23 06/04/25 docusate sodium 100 mg capsule 100 - 200 mg (1 - 2 x 100 mg) PO 06/30/24 06/04/25 DAILY PRN constipation #180 caps duloxetine 60 mg capsule,delayed 60 mg PO DAILY #90 caps 06/30/24 06/04/25 release levothyroxine 75 mcg tablet 75 mcg PO DAILY #90 tabs 06/30/24 06/04/25 lisinopril 10 mg tablet 10 mg PO DAILY #90 tabs 06/30/24 06/04/25 loratadine 10 mg tablet 10 mg PO daily prn #90 tab-caps 06/30/24 06/04/25 meloxicam 7.5 mg tablet 7.5 mg PO BID PRN joint pain #180 06/30/24 06/04/25 tab-caps norethindrone acetate 5 mg tablet 5 mg PO DAILY #90 tabs 06/30/24 06/04/25 sertraline 100 mg tablet 100 mg PO DAILY #90 tab-caps 06/30/24 06/04/25 acetaminophen 325 mg capsule 650 mg (2 x 325 mg) PO Q6H #60 caps 06/04/25 amoxicillin 875 mg-potassium 1 tab PO Q12H #10 tabs 06/04/25 clavulanate 125 mg tablet ibuprofen 600 mg tablet 600 mg PO Q6H PRN #60 tabs 06/04/25 lactobacillus combination no.4 3 3,000 mmu cells PO DAILY #10 caps 06/04/25 billion cell capsule (Probiotic) tramadol 50 mg tablet 50 mg PO Q4H PRN #14 tabs 06/04/25 Previous Rx's ?Medication ?Instructions ?Recorded calcium 500 mg (as 1 tab PO DAILY #90 tabs 05/03/22 carbonate)-vitamin D3 15 mcg (600 unit) tablet ibuprofen 400 mg tablet 400 mg PO TID PRN pain #90 tabs 08/01/23 docusate sodium 100 mg capsule 100 - 200 mg (1 - 2 x 100 mg) PO 06/30/24 DAILY PRN constipation #180 caps duloxetine 60 mg capsule,delayed 60 mg PO DAILY #90 caps 06/30/24 release levothyroxine 75 mcg tablet 75 mcg PO DAILY #90 tabs 06/30/24 lisinopril 10 mg tablet 10 mg PO DAILY #90 tabs 06/30/24 loratadine 10 mg tablet 10 mg PO daily prn #90 tab-caps 06/30/24 meloxicam 7.5 mg tablet 7.5 mg PO BID PRN joint pain #180 06/30/24 tab-caps norethindrone acetate 5 mg tablet 5 mg PO DAILY #90 tabs 06/30/24 sertraline 100 mg tablet 100 mg PO DAILY #90 tab-caps 06/30/24 acetaminophen 325 mg capsule 650 mg (2 x 325 mg) PO Q6H #60 caps 06/04/25 amoxicillin 875 mg-potassium 1 tab PO Q12H #10 tabs 06/04/25 clavulanate 125 mg tablet ibuprofen 600 mg tablet 600 mg PO Q6H PRN #60 tabs 06/04/25 lactobacillus combination no.4 3 3,000 mmu cells PO DAILY #10 caps 06/04/25 billion cell capsule (Probiotic) tramadol 50 mg tablet 50 mg PO Q4H PRN #14 tabs 06/04/25 Allergies Allergy/AdvReac Type Severity Reaction Status Date / Time No Known Allergies Allergy Verified 06/04/25 14:18 General Stated Complaint: RashLesion JANNET: 3 Exam Narrative Exam Narrative: General Appearance: Normal, appears anxious Vital signs: Within normal limits. Respiratory: Easy work of breathing, able to speak in full sentences. Skin: Lesions noted on tip of nose with mild surrounding erythema. No swelling per family. Normal appearance of nares. Abscesses x 3 to right axilla, very tender to palpation. No surrounding erythema. No pus drainage or crusting. Neuro: Normal facial strength. Psychiatric: Normal. Course Vital Signs Vital signs: Vital Signs Temperature 36.6 C 06/04/25 10:24 Pulse 113 H 06/04/25 10:24 Respiratory Rate 06/04/25 10:24 Blood Pressure 118/83 06/04/25 10:24 Pulse Oximetry 94 06/04/25 10:24 Temperature 36.2 C L 06/04/25 16:52 Temperature Source Tympanic 06/04/25 10:24 Pulse 104 H 06/04/25 16:52 Pulse Rhythm Regular 06/04/25 14:26 Pulse 106 H 06/04/25 16:47 Respiratory Rate 06/04/25 16:52 Respiratory Depth Normal 06/04/25 14:26 Blood Pressure 94/75 L 06/04/25 16:52 Blood Pressure Mean 58 06/04/25 16:47 Blood Pressure Position Sitting 06/04/25 10:24 Pulse Oximetry 97 06/04/25 16:52 Oxygen Delivery Method Room Air 06/04/25 16:52 Oxygen Flow Rate 0 06/04/25 14:26 Pain Level 10 06/04/25 10:24 Lab/Test Results Lab/Test Results: 06/04/25 16:08 Arm - Right Surgical Culture - Pending 06/04/25 16:08 Arm - Right Gram Stain - Pending Laboratory Tests Range/Units 06/04/25 11:55 WBC (4.4-10.8) 10^3/uL 9.46 RBC (3.93-5.22) 10^6/uL 3.81 L Hgb (11.2-15.7) g/dL 12.3 Hct (36.0-46.0) % 37.2 MCV (80-95) fL 98 H MCH (27.0-33.0) pg 32.3 MCHC (32.0-36.0) % 33.1 RDW (11.7-14.6) % 11.6 L Plt Count (130-400) 10^3/uL 305 MPV (8.0-11.0) fL 9.5 Immature Gran % % 0.5 Neutrophils % % 77.2 Lymphocytes % % 11.7 Monocytes % % 9.0 Eosinophils % % 1.1 Basophils % % 0.5 Nucleated RBC % (0.0-0.3) % 0.0 Absolute Neutrophils (1.2-6.7) 10^3/uL 7.30 H Absolute Lymphocytes (1.2-3.4) 10^3/uL 1.11 L Absolute Monocytes (0.1-0.8) 10^3/uL 0.85 H Absolute Eosinophils (0.0-0.7) 10^3/uL 0.10 Absolute Basophils (0.0-0.2) 10^3/uL 0.05 Sodium (136-145) mmol/L 137 Potassium (3.5-5.1) mmol/L 4.2 Chloride (98-107) mmol/L 101 Carbon Dioxide (21.0-32.0) mmol/L 23.9 Anion Gap (3-11) mmol/L 12.1 H BUN (7-18) mg/dL 18 Creatinine (0.55-1.02) mg/dL 0.8 Est GFR (CKD-EPI 2020) (mL/min/1.73m2) 88.05 Glucose (74-106) mg/dL 128 H Hemoglobin A1c (<5.7) % 5.7 Calcium (8.5-10.1) mg/dL 9.1 Medical Decision Making Initial Assessment: 55-year-old female with painful skin lesions, likely MRSA, present for 1.5 weeks. Family with similar symptoms. ED Course: - Evaluated for painful skin lesions. - Physical exam: multiple sores, some with dried blood/scabs. - No history of similar abscesses, no fever, chills, or systemic symptoms. - Baseline labs ordered to evaluate for systemic infection/glucose control I independently interpreted the following tests: CBC, BMP, and A1c unremarkable. -Recommend ultrasound-guided incision and drainage with general anesthesia/procedural sedation, as patient is unable to tolerate procedures without sedation. She does have sedation for dental work. Family is agreeable to sedation for this procedure Final Assessment: Painful skin lesions diagnosed as abscesses. Likely MRSA. Discussed case with general surgeon Dr. Mccloud and VINYL HANGER, patient to be taken to the OR for 3 PM procedure. Family and patient agreeable with plan of care. Clinical Impression: - Abscess, c/w MRSA Disposition: - Discharge home after procedure. - Return to ED if increased redness, swelling, fever, or worsening pain. Patient consented to the use of TAMELA PFSH All Active Problems (Updated 06/04/25 @ 17:44 by Regla Portillo) Abscess of axilla, right (Acute) Depressive disorder (Chronic) Gastroesophageal reflux disease with esophagitis (Chronic) Hypothyroidism (Chronic 08/05/13) Mental retardation (Chronic) Perimenopause (Acute 12/19/16) Tendonitis of left rotator cuff (Chronic 05/13/15) Primary osteoarthritis of both knees (Chronic) HTN (hypertension) (Chronic) Low back pain (Acute) Abnormal mammogram (Acute) Overweight (BMI 25.0-29.9) (Acute) Screening for colon cancer (Acute) Medical History Bowel dysfunction Abdominal gas pain Unsteady gait (02/02/14) due to scoliosis, T10-11 cord compression (improved post op) Idiopathic scoliosis 05/08 [facility] [place] T8-12 laminectomy and fusion for cord compression Foot pain, bilateral (12/28/14) bilat AFO (Schein) Blindness of both eyes, impairment level not further specified (02/02/14) legally blind in both eyes-per mom states not 100% blind, and can get around, she needs somebody's arm to get around Abnormal uterine bleeding (AUB) 2016 episodic amenorrhea followed by heavy flow. 11/2016 D&C: proliferative endometrium. Rx for Norethindrone 5mg/day. No withdrawal bleed planned. Surgical History Dilation and curettage (12/06/16) for eval of AUB. path: weakly proliferative endometrium. Rx with Norethindrone. Back Surgery 05/19/14 Dr. Carlos Family History Mother Epilepsy Essential hypertension Father , 74 Mariama syndrome Palma's palsy Myasthenia gravis Stroke Brother Retinitis pigmentosa Essential hypertension Depression Maternal Grandfather , 61 Essential hypertension Heart disease Hyperlipidemia Paternal Grandfather Mariama syndrome Retinitis pigmentosa Maternal Grandmother Diabetes Dementia Depression Skin cancer Paternal Grandmother Diabetes Heart disease Stroke Cancer Social History Smoking/Tobacco Use Status: Never Second Hand Exposure: Yes Smoking risk assessment performed?: Yes Alcohol Intake: never Drug use: Never Substance use type: does not use Caregiver/Support person: Yes Communication Needs: Blind, Corrective Lenses, Cannot Read and Language Barriers Do you need help understanding health information?: Always Sexually active: No How often do you talk on the phone with friends or family?: three or more times per week How often do you get together with friends or relatives?: three or more times per week How often do you attend denominational or mormonism services?: 4 or more times per year Panel score (0-1 are the most socially isolated patients): 2 What type of physical activity do you participate in: walking Duration: 15-30 minutes/day Frequency: 3-4 times per week Lizzy/Sabianism: Jain Seatbelt use: always Additional Social history: [employer]
== END 2025-06-04 17:30 | disposition home or self-care (01) ==
LOC: ER 13:11 → SUR 14:14
PROVIDERS: Emergency Provider Nurse Practitioner Family; PCP Nurse Practitioner Family; Visit Provider Surgery
PROC: (CPT 10061; principal; 2025-06-04 15:00)
DX: L02.411 Cutaneous abscess of right axilla (principal); I10 Essential (primary) hypertension; E03.9 Hypothyroidism, unspecified; F79 Unspecified intellectual disabilities; K21.9 Gastro-esophageal reflux disease without esophagitis; E66.3 Overweight; Z68.29 Body mass index [BMI] 29.0-29.9, adult
CPT/HCPCS: 10061; 80048; 87077; 83036; 85025; 87070; 87186; 87205; J0690; J1100; J1885; J2003; J2405; J2704; J3010

== ENCOUNTER 2025-07-12 04:13 | Outpatient (CLI) | payer MEDICARE, MEDICAID, SELFPAY ==
[2025-07-12 12:29] LABS: HCT 38.0 % (36.0-46.0); HGB 12.7 g/dL (11.2-15.7); MCH 32.6 pg (27.0-33.0); MCHC 33.4 % (32.0-36.0); MCV 98 fL (80-95); MPV 10.8 fL (8.0-11.0); Platelet Count 251 10^3/uL (130-400); RBC 3.89 10^6/uL (3.93-5.22); RDW 12.4 % (11.7-14.6); RDW-SD 44.7 fL; WBC 4.00 10^3/uL (4.4-10.8)
[2025-07-12 12:41] LABS: Hemoglobin A1C 5.4 % (<5.7)
[2025-07-12 13:19] LABS: ALT 56 U/L (14-59); AST 27 U/L (15-37); Albumin 4.0 g/dL (3.4-5.0); Alkaline Phosphatase 66 U/L (46-116); Anion Gap 11.9 mmol/L (3-11); BUN 23 mg/dL (7-18); Bilirubin, Total 0.4 mg/dL (0.2-1.0); CO2 24.1 mmol/L (21.0-32.0); Calcium 9.2 mg/dL (8.5-10.1); Calculated LDL 169 mg/dL (<100); Chloride 105 mmol/L (98-107); Cholesterol 227 mg/dL (<200); Estimated GFR 88.05 (mL/min/1.73m2); Glucose 89 mg/dL (74-106); HDL Cholesterol 42 mg/dL (>or=50); Potassium 4.2 mmol/L (3.5-5.1); Sodium 141 mmol/L (136-145); TSH (W/Ref FT4) 1.85 uIU/mL (0.36-3.74); Total Protein 7.3 g/dL (6.4-8.2); Triglyceride 81 mg/dL (<150)
== END 2025-07-12 04:14 | disposition home or self-care (01) ==
LOC: LOS 04:13
PROVIDERS: PCP Nurse Practitioner Family; Visit Provider Nurse Practitioner Family
DX: E03.9 Hypothyroidism, unspecified (principal); F32.9 Major depressive disorder, single episode, unspecified; Z00.00 Encounter for general adult medical examination without abnormal findings; I10 Essential (primary) hypertension; L02.411 Cutaneous abscess of right axilla; F79 Unspecified intellectual disabilities; R73.01 Impaired fasting glucose
CPT/HCPCS: 36415; 80053; 80061; 85027; 83036; 84443

== ENCOUNTER 2025-07-21 01:16 | Outpatient (CLI) | payer MEDICARE, MEDICAID, SELFPAY ==
--- NOTE | 2025-07-21 07:15 | DI.MAMMO_ITS ---
Exam(s) MG MAMMO SCREENING 60 MIN DUR EXAM: MG MAMMO SCREENING 60 MIN DUR CLINICAL HISTORY: Screening,Z12.31 TECHNIQUE: Bilateral full field digital CC and MLO mammographic images were obtained with 3D tomosynthesis and utilizing computer aided detection (CAD). COMPARISON: Comparison is made with prior examinations. FINDINGS: Masses/Architectural Distortion: There are stable benign bilateral breast nodules present. There is a new nodule seen in the medial and central left breast measuring 5 mm. It is located 4 cm from the nipple. It persists on the additional views. There are no areas of architectural distortion. Microcalcifications: No suspicious pleomorphic-type are seen. Skin Thickening/Nipple Retraction: None. IMPRESSION: 1. New 5 mm breast nodule in the left breast. 2. Ultrasound was unable to be performed today. The patient is scheduled to return to the department for a diagnostic left breast ultrasound. BI-RADS Category 0 - Incomplete: Need additional imaging evaluation Breast Density - Category B - There are scattered areas of fibroglandular density. Breast density Category C or D implies that the patient has dense breast tissue. Dense breast tissue can make it harder to find cancer on a mammogram. Dense breast tissue is also associated with an increased risk of breast cancer. This information about the result of the mammogram report was provided to the patient to raise their awareness. Use this report when you speak with the patient about their risks for breast cancer, which includes their family history. At that time, you may recommend additional screening tests (Ultrasound or MRI) as these tests may add significant information. A negative radiographic report should not delay biopsy if a dominant or clinically suspicious mass is present. Up to ten percent of cancers are not identified on mammography. A negative report may reinforce clinical impression. Adenosis and dense breasts may obscure an underlying neoplasm. False positive reports average 6 to 10%. Patient will receive a letter notifying them of these results.
== END 2025-07-21 01:36 ==
LOC: DI 01:16
PROVIDERS: PCP Nurse Practitioner Family; Visit Provider Nurse Practitioner Family
DX: Z12.31 Encounter for screening mammogram for malignant neoplasm of breast (principal); R92.323 Mammographic fibroglandular density, bilateral breasts
CPT/HCPCS: 77063; 77067

== ENCOUNTER 2025-07-22 03:13 | Outpatient (CLI) | payer MEDICARE, MEDICAID, SELFPAY ==
--- NOTE | 2025-07-22 | DI.US_ITS ---
Exam(s) US BREAST LT COMPLETE EXAM: US BREAST LT COMPLETE CLINICAL HISTORY: F/U MAMMO, R92.8,NEW 5 MM LT BREAST NODULE TECHNIQUE: Ultrasound left breast performed using standard protocol. All 4 quadrants of the left breast, the left axilla and the left retroareolar region were evaluated sonographically. COMPARISON: Comparison is made with prior examinations. FINDINGS: No solid or cystic masses, hypoechoic foci, areas of abnormal shadowing, or areas of skin thickening. Sonographically normal lymph nodes are seen in the left axilla. IMPRESSION: 1. No sonographically suspicious finding. 2. A six-month follow-up left mammogram is requested for re-evaluation. 3. The findings were discussed with the patient and caregiver on the date of the examination. BI-RADS Category 3 - 6 month - Probably Benign Finding: Recommend follow-up imaging in 6 months DATA REPOSITORY:
== END 2025-07-22 03:33 ==
LOC: DI 03:13
PROVIDERS: PCP Nurse Practitioner Family; Visit Provider Nurse Practitioner Family
DX: R92.8 Other abnormal and inconclusive findings on diagnostic imaging of breast (principal)
CPT/HCPCS: 76642

== ENCOUNTER 2025-08-09 01:51 | Outpatient (CLI) | payer MEDICARE, MEDICAID, SELFPAY ==
[2025-08-09 10:57] LABS: Abs Immature Grans 0.02 10^3/uL (0.0-0.06); HCT 42.2 % (36.0-46.0); HGB 14.0 g/dL (11.2-15.7); Immature Grans % 0.4 %; MCH 32.6 pg (27.0-33.0); MCHC 33.2 % (32.0-36.0); MCV 98 fL (80-95); MPV 10.1 fL (8.0-11.0); Platelet Count 228 10^3/uL (130-400); RBC 4.29 10^6/uL (3.93-5.22); RDW 12.1 % (11.7-14.6); RDW-SD 43.9 fL; WBC 4.62 10^3/uL (4.4-10.8)
== END 2025-08-09 01:52 | disposition home or self-care (01) ==
LOC: LBO 01:51
PROVIDERS: PCP Nurse Practitioner Family; Visit Provider Obstetrics & Gynecology
DX: Z01.818 Encounter for other preprocedural examination (principal)
CPT/HCPCS: 36415; 86850; 86900; 86901; 85025

== ENCOUNTER 2025-08-11 07:05 | Day surgery (SDC) | payer MEDICARE, MEDICAID, SELFPAY ==
--- NOTE | 2025-08-11 07:15 | DI.US_ITS ---
Exam(s) US TRANSVAGINAL EXAM: US TRANSVAGINAL CLINICAL HISTORY: Developmental delay, behavioral abnormalities. TECHNIQUE: Transvaginal pelvic ultrasound was performed under general anesthesia. Dr. Ashwini Schneider of the Department of [facility] was present during the examination. COMPARISON: US ABDOMEN PELVIS ULTRASOUND from 08/24/2016 FINDINGS: UTERUS: Position: Anteverted. Size: 4.5 long by 2.4 AP by 3.2 transverse cm Endometrium: 0.4 cm. Normal for patient's menstrual status. Myometrium: Unremarkable. Cervix: There is a small amount of fluid within the cervical canal. OVARIES: Right: 1.9 x 1.3 x 0.8 cm Cyst or mass: There are no suspicious cystic or solid masses. Left: 1.5 x 0.8 x 0.6 cm Cyst or mass: There are no suspicious cystic or solid masses. CUL-DE-SAC: Free fluid: None. IMPRESSION: 1. There is a small amount of fluid seen within the cervical canal. 2. Normal-appearing uterus with endometrial stripe within normal limits. 3. Unremarkable bilateral ovaries. DATA REPOSITORY:
[2025-08-11 07:30] VITALS: BP 131/88; PULSE 99; RESP 16; TEMP 36.4; O2SAT 97
--- NOTE | 2025-08-11 07:45 | ANES.PREOP_ITS ---
General Info Date of Service Date Performed: 08/11/25 Height: 5 ft Weight: 76.204 kg Body Mass Index (BMI): 32.8 Surgical Procedure: Operation Date: 08/11/25 08:25 Proposed Procedure Side Surgeon p Exam Under Anesthesia, Pap Smear, Ultrasound Ashwini Schneider DO Actual Procedure Side Surgeon p Exam Under Anesthesia, Pap Smear, Ultrasound Not Applicable Ashwini Schneider DO Pre-Op Diagnosis Post-Op Diagnosis 1. Developmental delay, behavioral abnormalities, and neuropsychiatric disorder syndrome 2. Unable to tolerate office exam Meds Allergies and Home Medications Allergies Allergy/AdvReac Type Severity Reaction Status Date / Time No Known Allergies Allergy Verified 08/11/25 07:41 Home Medication ?Medication ?Instructions ?Recorded multivitamin 1 cap PO DAILY 02/13/13 peg 400-propylene glycol 0.4 %-0.3 1 drp ophthalmic (e ye) QID 02/13/13 % eye liquid gel drops (Systane Liquid Gel) calcium 500 mg (as 1 tab PO DAILY #90 tabs 08/16 carbonate)-vitamin D3 15 mcg (600 unit) tablet norethindrone acetate 5 mg tablet 5 mg PO DAILY #90 ta bs 06/30/24 sertraline 100 mg tablet 100 mg PO DAILY #90 tab-caps 06/30/24 acetaminophen 325 mg capsule 650 mg (2 x 325 mg) PO Q6 H #60 caps 06/04/25 docusate sodium 100 mg capsule 100 - 200 mg (1 - 2 x 1 00 mg) PO 06/14/25 DAILY PRN constipation #180 caps levothyroxine 75 mcg tablet 75 mcg PO DAILY #90 tabs 0 06/14/25 lisinopril 10 mg tablet 10 mg PO DAILY #90 tabs 0712/19 meloxicam 7.5 mg tablet 7.5 mg PO BID PRN joint pain #180 07/20/25 tab-caps Current Visit Medications: Current Medications Generic Name Dose Route Start Last Admin Trade Name Freq PRN Reason Stop Dose Admin Ringer's Solution 1,000 mls @ 125 mls/hr 08/11/25 06:00 IV 08/11/25 23:59 INFUSION JEANNA IV Miscellaneous Supplies 1 each 08/11/25 06:00 Iv Access IV 08/11/25 23:59 DIRECTED JEANNA Sodium Chloride 0 ml 08/11/25 06:00 Normal Saline Flush 10 Ml Syr IV 08/11/25 23:59 PRN PRN Sodium Chloride 0 ml 08/11/25 06:00 Normal Saline 10 Ml Vial IJ 08/11/25 23:59 DIRECTED PRN Sterile Water 0 ml 08/11/25 06:00 Water,Injection,Sterile 10 Ml Vial IJ 08/11/25 23:59 DIRECTED PRN PFSH Active Problems Active Problems: Problem Status Onset Code Developmental delay, behavioral abnormalities, and neuropsychiatric disorder syndrome Acute Q87.89, R62.50, F48.9, R46.89 Abscess of axilla, right Acute L02.411 Depressive disorder Chronic F32.9 Gastroesophageal reflux disease with esophagitis Chronic K21.0 Hypothyroidism Chronic 08/05/13 E03.9 Perimenopause Acute 12/19/16 N95.1 Tendonitis of left rotator cuff Chronic 05/13/15 M75.82 Primary osteoarthritis of both knees Chronic M17.0 HTN (hypertension) Chronic I10 Low back pain Acute M54.5 Abnormal mammogram Acute R92.8 Overweight (BMI 25.0-29.9) Acute E66.3 Screening for colon cancer Acute Z12.11 Medical History Medical History Bowel dysfunction Abdominal gas pain Unsteady gait (02/02/14) due to scoliosis, T10-11 cord compression (improved post op) Idiopathic scoliosis 05/08 [facility] [place] T8-12 laminectomy and fusion for cord compression Foot pain, bilateral (12/28/14) bilat AFO (Schein) Blindness of both eyes, impairment level not further specified (02/02/14) legally blind in both eyes-per mom states not 100% blind, and can get around, she needs somebody's arm to get around Abnormal uterine bleeding (AUB) 2015 episodic amenorrhea followed by heavy flow. 11/2016 D&C: proliferative endometrium. Rx for Norethindrone 5mg/day. No withdrawal bleed planned. Surgical History Surgical History Dilation and curettage (12/06/16) for eval of AUB. path: weakly proliferative endometrium. Rx with Norethindrone. Back Surgery 05/19/14 Dr. Carlos Tobacco Smoking/Tobacco Use Status: Never Passive smoking exposure: Yes (sometimes brother) Second hand exposure: Yes Alcohol Alcohol Intake: never Substance Use Substance use: Never Substance use type: does not use Vital Signs and Lab Results Lab Results Blood Type / Crossmatch: Antibody Screen NEGATIVE 08/09/25 Complete Blood Count: WBC, (4.4-10.8) 4.62 10^3/uL 08/09/25, 10:40 RBC, (3.93-5.22) 4.29 10^6/uL 08/09/25, 10:40 Hgb, (11.2-15.7) 14.0 g/dL 08/09/25, 10:40 Hct, (36.0-46.0) 42.2 % 08/09/25, 10:40 Plt Count, (130-400) 228 10^3/uL 08/09/25, 10:40 Anesthesia Assessment and Plan Anesthesia History Personal History: No History of Anesthesia Complications Family History: No Family History of Anesthesia Complications Exercise Tolerance Exercise Tolerance: Metabolic Equivalents<4 Pertinent Negatives Pertinent Negatives: No Symptoms of GERD, No Major Cardiovascular Symptoms or Complaints, No Major Pulmonary Symptoms or Complaints and No History of CVA/TIA Cardiac & Pulmonary Exam Cardiac Exam: Normal S1/S2 Heart Sounds Pulmonary Exam: Clear Bilateral Breath Sounds Implantable Cardiac Device Does patient have a Pacemaker or an ICD?: No Airway Exam Known Difficult Airway: No Mallampati Class: 3 Mouth Opening: Narrow (< 3cm) Thyromental Distance: Greater than 3 cm Neck Range of Motion: Full ROM Neck Circumference: Normal Teeth Condition: Generalized Poor Dentition ASA Classification ASA Score: ASA 2 Emergency Case?: No NPO Status NPO Status: NPO Clears >2 hours, Solids >8 hours Status Status: Not Relevant due to Medical History Anesthesia Plan Resuscitation Status: Full Code Anesthesia Technique: General Anesthesia Airway Planned: Natural Airway Monitors Used: Standard Monitors
[2025-08-11] MEDS: Lactated Ringers 1,000 ML 125 ML IV (09:20)
--- NOTE | 2025-08-11 09:52 | PAPFT_PTH ---
PATIENT: Socorro Mojica LOC: [facility] U#:[id number] AGE/SX: 55/F ROOM: RE08/11/[address]: Ashwini Schneider DO : 1970 BED: DIS: 08/11/2025 SPEC #: [id number] RECD: 08/11/25 12:35 STATUS: CHANTELL REAleida #: [id number] CANDACE: 08/11/25 09:[address]: Ashwini Schneider DEPT: [facility] Cytology RECD BY: Nydia Rockwell ENTERED: 08/11/25 12:35 SP TYPE: PAPFT OTHR DR: Martita Gong, SAMSON Tissues: 1 - CX/ENDOCX FOR PAP SMEARS Procedures: PAP THIN PREP/UVM Screening HPV DNA PROBE Comments: [id number] (HPV 16 & 18/45)
[2025-08-11 09:53] VITALS: BMI 32.8
[2025-08-11 10:05] VITALS: BP 74/32; PULSE 84; RESP 16; TEMP 36.1; O2SAT 96
--- NOTE | 2025-08-11 10:09 | W.PM.OP ---
Operative Note Operative Note PRE-OP DIAGNOSIS: Intolerant of exam in office PROCEDURE: Exam under anesthesia, Pap smear, pelvic ultrasound SURGEON: Ashwini Schneider Refer to Anesthesia Record ESTIMATED BLOOD LOSS: 0 PATHOLOGY: other (Pap smear) COMPLICATIONS: None Patient was transported to: same day Indications: Intolerant of exam in the office Findings: Vulvovaginal atrophy. Nulliparous cervix. Uterus, small, involuted. No adnexal masses appreciated. Uterus retroflexed. Cervix appears normal, somewhat stenotic. Pap smear obtained. Procedure Description: After full informed consent had been signed by her family and caregivers, patient was taken the operating suite with an IV running. She was placed in the supine position and anesthesia administered. Once she was comfortable, she was placed in the modified dorsolithotomy position with pneumatic compression stockings in yellowfin stirrups. Exam under anesthesia was performed which showed mild to moderate vulvovaginal atrophy, narrow vaginal introitus, uterus midline, mobile, small, without adnexal masses. Speculum was inserted into the vaginal vault. Cervix identified and appeared small, nulliparous, and slightly stenotic. Pap smear was obtained. Vaginal speculum was removed. Ultrasound was present for transvaginal ultrasound. On insertion of the probe, bladder was noted to be significantly full and was drained with a straight catheterization for 400 cc of clear yellow urine. Remainder of the ultrasound performed by ZEB EBL: None Complications: None Pathology: Pap smear for examination. Date of Procedure: 08/11/25
[2025-08-11] MEDS: Normal Saline Flush 10 ML SYR IV (10:10)
[2025-08-11 10:15] VITALS: BP 94/81; PULSE 78; RESP 16; TEMP 36.1; O2SAT 96
[2025-08-11 10:24] VITALS: BP 89/38; PULSE 76; RESP 16; O2SAT 98
[2025-08-11 10:32] VITALS: BP 100/65; O2SAT 97
[2025-08-11 10:55] VITALS: BP 109/71; PULSE 82; RESP 16; TEMP 36.4; O2SAT 100
--- NOTE | 2025-08-11 10:57 | W.ANESPOSTOP ---
Postoperative Evaluation Date, Time and Location Date Performed: 08/11/25 Time Performed: 10:57 Patient Location: Day Surgery Unit Vital Signs Most Recent Imported Vital Signs: Most Recent Vital Signs Temp Pulse Resp BP Pulse Ox 36.4 C L 82 16 109/71 100 08/11/25 10:55 08/11/25 10:55 08/11/25 10:55 08/11/25 10:55 08/11/25 10:55 Pain Score Most Recent Pain Score: Most Recent Pain Score Pain Level 0 08/11/25 10:55 Assessment Mental Status: Awake (Alert & Oriented to Patient Baseline) Airway and Respiratory Function: Patent airway with normal (patient baseline) respiratory exam Cardiovascular Function: Hemodynamically Stable Hydration Status: Adequately Hydrated Nausea & Vomiting: No Nausea or Vomiting Pain: Pt. Denies Any Pain Peripheral Nerve Block: Patient did not receive a nerve block Postoperative Comments:: instructed to hold lisinopril for today and resume tomorrow. reviewed s/s of hypotension.
== END 2025-08-11 11:25 | disposition home or self-care (01) ==
PROVIDERS: PCP Nurse Practitioner Family; Visit Provider Obstetrics & Gynecology
PROC: (CPT 57410; principal; 2025-08-11 08:15)
DX: N90.5 Atrophy of vulva (principal); N88.2 Stricture and stenosis of cervix uteri; Q87.89 Other specified congenital malformation syndromes, not elsewhere classified; R46.89 Other symptoms and signs involving appearance and behavior; I10 Essential (primary) hypertension; M41.20 Other idiopathic scoliosis, site unspecified; H54.8 Legal blindness, as defined in USA
CPT/HCPCS: 57410; 88142; 76830; 87624; J2003; J2371; J2405; J2704

== ENCOUNTER 2025-09-01 15:50 | Outpatient (REF) | payer MEDICARE, MEDICAID, SELFPAY ==
[2025-09-02 17:03] LABS: Glucose Negative (Negative)
[2025-09-02 17:08] LABS: C & S Indicated? Yes; RBC Negative HPF (0-2)
== END 2025-09-01 15:51 | disposition home or self-care (01) ==
LOC: LBN 15:50
PROVIDERS: PCP Nurse Practitioner Family; Visit Provider Nurse Practitioner Family
DX: R82.90 Unspecified abnormal findings in urine (principal)
CPT/HCPCS: 87077; 81003; 81015; 87086; 87186

== ENCOUNTER 2025-11-04 15:50 | Outpatient (REF) | payer MEDICARE, MEDICAID, SELFPAY ==
[2025-11-04 16:52] LABS: Glucose Negative (Negative)
[2025-11-04 17:16] LABS: C & S Indicated? Yes; RBC Negative HPF (0-2); WBC >50 HPF (0-5)
== END 2025-11-04 15:51 | disposition home or self-care (01) ==
LOC: LBN 15:50
PROVIDERS: PCP Nurse Practitioner Family; Visit Provider Nurse Practitioner Family
DX: R82.998 Other abnormal findings in urine (principal)
CPT/HCPCS: 87077; 81003; 81015; 87086; 87186